=== PATIENT | male | born 1970 | race Caucasian/White ===

== ENCOUNTER → 2019-03-06 | Outpatient (CLI) | payer MEDICAID, SELFPAY ==
[2019-03-06 11:02] LABS: Bacteria 0 SEEN /hpf (None Seen); Mucous, Urine 0 SEEN /hpf (<or=2+); Red Blood Cells-Urine 0 SEEN /hpf (0-5); White Blood Cells 0 SEEN /hpf (0-5)
[2019-03-06 12:15] LABS: Absolute Lymphocyte Count 2.24 X10^3/ul (0.83-4.51); Absolute Neutrophil Count 6.7 X10^3/uL (2.0-7.7); Basophil# 0.03 X10^3/uL; Basophil% 0.3 % (0-1); Eosinophil# 0.33 X10^3/uL; Eosinophils% 3.3 % (0-5); Hematocrit 45.7 % (40-54); Hemoglobin 15.5 g/dl (13.0-16.5); Lymphocyte # 2.24 X10^3/ul (4.0); Lymphocyte % 22.4 % (19-41); Mean Corp Hgb Conc 33.9 g/gl (32-36); Mean Corpuscular Hgb 30.9 pg (27.0-32.0); Mean Platelet Vol. 10.9 fl (6.2-12.0); Monocyte# 0.66 X10^3/uL; Monocyte% 6.6 % (0-10); Platelet Count 199 K/mm3 (150-450); RBC Distribution Width CV 12.9 % (11.6-14.6); RBC Distribution Width SD 42.5 fl (35.1-43.9); Red Blood Count 5.02 M/mm3 (4.6-6.2)
[2019-03-06 12:21] LABS: POSITIVE COUNT NO; POSITIVE DIFFERENTIAL NO; POSITIVE MORPHOLOGY NO
[2019-03-06 12:45] LABS: ALB/GLOB Ratio 1.1 RATIO (0.9-2.4); AST(SGOT) 46 U/L (15-37); Alanine Aminotransfer ALT/SGPT 87 U/L (16-61); Alkaline Phosphatase 73 U/L (45-117); Anion Gap 6 (5-15); BUN 11 mg/dL (7-18); BUN/Creat Ratio 13.4 RATIO (10-20); Calcium,Total 9.1 mg/dL (8.5-10.1); Chloride 104 mmol/L (98-107); Cholesterol 234 mg/dL (200); Creatinine, Serum 0.82 mg/dL (0.70-1.30); EST Glomerular Filtration Rate 107 mL/min (>60); Est Glom Filt Rate - Afr Amer 130 mL/min (>60); Globulin 3.6 g/dL (2.2-4.2); Glucose 94 mg/dL (74-106); High Density Lipoprotein 39 mg/dL; Magnesium 2.1 mg/dL (1.6-2.6); Potassium 4.6 mmol/L (3.5-5.1); Protein, Total 7.6 g/dL (6.4-8.2); Sodium Level 135 mmol/L (136-145); T4 Free Direct 0.87 ng/dL (0.76-1.46); Thyroid Stim Hormone (TSH) 1.96 uIU/mL (0.358-3.74); Triglycerides 179 mg/dL; Very Low Density Lipoprotein 36 mg/dL (5-40)
[2019-03-06 14:11] LABS: Color, Urine Yellow (Yellow); Glucose, Dipstick Normal (Normal); Ketone-Dipstick Negative (Negative); Leukocyte Esterase-Dipstick Negative /ul (Negative); Nitrite-Dipstick Negative (Negative); Occult Blood-Urine Negative /ul (Negative); Protein-Dipstick Negative (Negative); Specific Gravity, Urine 1.015 (1.002-1.030); Urine Bilirubin Dipstick Negative (Negative); Urine Clarity Sl. Cloudy (Clear); Urine Urobilinogen Normal (Normal)
[2019-03-06 14:19] LABS: Squamous Epithelial Cells - UA 0-5 SEEN /hpf (0-5)
[2019-03-10 16:09] LABS: HEPATITIS B SURFACE AG Negative (Negative); Hep B Surface Antibodies Non Reactive (.); Hep C Antibodies <0.1 s/co ratio (0.0-0.9)
== END | disposition home or self-care (01) ==
PROVIDERS: Family Provider Family Medicine; PCP Family Medicine; Referring Provider Family Medicine; Visit Provider Family Medicine
DX: I10 Essential (primary) hypertension (principal); E01.0 Iodine-deficiency related diffuse (endemic) goiter; E78.5 Hyperlipidemia, unspecified
CPT/HCPCS: 36415; 80053; 80061; 81001; 83735; 84439; 84443; 85025; 86706; 86803; 87340

== ENCOUNTER → 2019-03-12 | Outpatient (CLI) | payer MEDICAID, SELFPAY ==
--- NOTE | 2019-03-12 09:32 | US_ITS ---
STUDY: THYROID ULTRASOUND REASON FOR EXAM: Male, 48 years old. Thyromegaly. TECHNIQUE: Ultrasound evaluation of the thyroid was performed with real-time and static oconnor-scale imaging. COMPARISON: None. FINDINGS: RIGHT LOBE: The right lobe of the thyroid gland is slightly enlarged and measures 5.1 cm x 1.7 cm x 1.2 cm. There is a homogeneous echotexture. There are no demonstrated solid, cystic or complex lesions. LEFT LOBE: The left lobe of the thyroid gland measures 4.5 cm x 1.8 cm x 1.7 cm. There is a homogeneous echotexture. There are no demonstrated solid, cystic or complex lesions. ISTHMUS: The isthmus measures 4.0 mm. The regional lymph nodes are normal. US/Thyroid IMPRESSION: Mild enlargement of the right lobe of the thyroid. Electronically Signed: Venkatesh Hernandez, at 10:41 EDT , Service support ,
== END | disposition home or self-care (01) ==
PROVIDERS: Family Provider Family Medicine; PCP Family Medicine; Referring Provider Family Medicine; Visit Provider Family Medicine
DX: E01.0 Iodine-deficiency related diffuse (endemic) goiter (principal)
CPT/HCPCS: 76536

== ENCOUNTER → 2019-06-03 15:57 | Outpatient (CLI) | payer MEDICAID, SELFPAY ==
[2019-04-01 14:27] VITALS: BMI 38.3
[2019-06-03 17:29] LABS: Absolute Lymphocyte Count 2.33 X10^3/uL (0.83-4.51); Absolute Neutrophil Count 4.9 X10^3/uL (2.0-7.7); Basophil# 0.03 X10^3/uL; Basophil% 0.4 % (0-1); Eosinophil# 0.27 X10^3/uL; Eosinophils% 3.2 % (0-5); Hematocrit 46.3 % (40-54); Hemoglobin 15.1 g/dL (13.0-16.5); Lymphocyte # 2.33 X10^3/ul (4.0); Lymphocyte % 27.6 % (19-41); Mean Corp Hgb Conc 32.6 g/dL (32-36); Mean Corpuscular Hgb 30.2 pg (27.0-32.0); Mean Corpuscular Volume 92.6 fL (80-94); Mean Platelet Vol. 10.9 fl (6.2-12.0); Monocyte# 0.89 X10^3/uL; Monocyte% 10.5 % (0-10); NRBC Flagged by Analyzer 0 % (0-5); Neutrophil % 57.9 % (47-70); Platelet Count 208 K/mm3 (150-450); RBC Distribution Width SD 41.1 fl (35.1-43.9); White Blood Count 8.5 K/mm3 (4.4-11.0)
[2019-06-03 17:55] LABS: ALB/GLOB Ratio 1.1 RATIO (0.9-2.4); AST(SGOT) 51 U/L (15-37); Alanine Aminotransfer ALT/SGPT 79 U/L (16-61); Albumin, Serum 4.4 g/dL (3.2-5.0); Alkaline Phosphatase 67 U/L (45-117); Anion Gap 8 (5-15); BUN 11 mg/dL (7-18); BUN/Creat Ratio 11.6 RATIO (10-20); Calcium,Total 9.4 mg/dL (8.5-10.1); Chloride 102 mmol/L (98-107); Cholesterol 176 mg/dL (200); Creatinine, Serum 0.95 mg/dL (0.70-1.30); EST Glomerular Filtration Rate 90 mL/min (>60); Est Glom Filt Rate - Afr Amer 109 mL/min (>60); Globulin 4.1 g/dL (2.2-4.2); Glucose 77 mg/dL (74-106); High Density Lipoprotein 43 mg/dL; Potassium 4.6 mmol/L (3.5-5.1); Protein, Total 8.5 g/dL (6.4-8.2); Sodium Level 139 mmol/L (136-145); Triglycerides 130 mg/dL; Very Low Density Lipoprotein 26 mg/dL (5-40)
== END ==
PROVIDERS: Family Provider Family Medicine; PCP Family Medicine; Referring Provider Family Medicine; Visit Provider Family Medicine
DX: E78.5 Hyperlipidemia, unspecified (principal); R94.5 Abnormal results of liver function studies; I10 Essential (primary) hypertension
CPT/HCPCS: 36415; 80053; 80061; 85025

== ENCOUNTER → 2020-06-01 16:01 | Outpatient (CLI) | payer OTHER, SELFPAY ==
[2019-04-01 14:27] VITALS: BMI 38.3
[2020-06-01 19:03] LABS: Basophil# 0.04 X10^3/uL; Basophil% 0.5 % (0-1); Eosinophils% 2.4 % (0-5); Hemoglobin 15.6 g/dL (13.0-16.5); Lymphocyte % 27.6 % (19-41); Mean Corp Hgb Conc 32.5 g/dL (32-36); Mean Corpuscular Hgb 30.5 pg (27.0-32.0); Mean Corpuscular Volume 93.8 fL (80-94); Monocyte# 0.76 X10^3/uL; Monocyte% 9.1 % (0-10); NRBC Flagged by Analyzer 0 % (0-5); Neutrophil # 4.99 X10^3/uL (2.7-7.7); Platelet Count 224 K/mm3 (150-450); RBC Distribution Width CV 12.1 % (11.6-14.6); RBC Distribution Width SD 42.1 fl (35.1-43.9); Red Blood Count 5.12 M/mm3 (4.6-6.2); White Blood Count 8.3 K/mm3 (4.4-11.0)
[2020-06-01 19:11] LABS: Vitamin D,25 Hydroxy 19.9 ng/mL
[2020-06-01 19:46] LABS: AST(SGOT) 60 U/L (15-37); Alanine Aminotransfer ALT/SGPT 101 U/L (16-61); Albumin, Serum 4.2 g/dL (3.2-5.0); Alkaline Phosphatase 66 U/L (45-117); Anion Gap 8 (5-15); BUN 9 mg/dL (7-18); BUN/Creat Ratio 9.5 RATIO (10-20); Calcium,Total 9.2 mg/dL (8.5-10.1); Chloride 101 mmol/L (98-107); Cholesterol 250 mg/dL (200); Creatinine, Serum 0.94 mg/dL (0.70-1.30); EST Glomerular Filtration Rate 90 mL/min (>60); Est Glom Filt Rate - Afr Amer 109 mL/min (>60); Glucose 90 mg/dL (74-106); High Density Lipoprotein 46 mg/dL; Potassium 3.9 mmol/L (3.5-5.1); Protein, Total 8.2 g/dL (6.4-8.2); Sodium Level 136 mmol/L (136-145); Thyroid Stim Hormone (TSH) 2.48 uIU/mL (0.358-3.74); Triglycerides 114 mg/dL; Very Low Density Lipoprotein 23 mg/dL (5-40)
== END ==
PROVIDERS: PCP Family Medicine; Referring Provider Family Medicine; Visit Provider Family Medicine
DX: I10 Essential (primary) hypertension (principal); E78.5 Hyperlipidemia, unspecified; E55.9 Vitamin D deficiency, unspecified
CPT/HCPCS: 36415; 80053; 80061; 82306; 84443; 85025

== ENCOUNTER → 2020-08-31 16:14 | Outpatient (CLI) | payer OTHER, SELFPAY ==
[2019-04-01 14:27] VITALS: BMI 38.3
[2020-08-31 18:08] LABS: Absolute Lymphocyte Count 2.54 X10^3/uL (0.83-4.51); Absolute Neutrophil Count 6.4 X10^3/uL (2.0-7.7); Basophil# 0.05 X10^3/uL; Basophil% 0.5 % (0-1); Eosinophil# 0.25 X10^3/uL; Eosinophils% 2.5 % (0-5); Hematocrit 45.5 % (40-54); Lymphocyte # 2.54 X10^3/ul (4.0); Lymphocyte % 25.5 % (19-41); Mean Corpuscular Hgb 30.7 pg (27.0-32.0); Mean Platelet Vol. 10.7 fl (6.2-12.0); Monocyte# 0.68 X10^3/uL; Monocyte% 6.8 % (0-10); NRBC Flagged by Analyzer 0 % (0-5); Neutrophil # 6.35 X10^3/uL (2.7-7.7); Neutrophil % 63.6 % (47-70); Platelet Count 215 K/mm3 (150-450); RBC Distribution Width CV 12.3 % (11.6-14.6); RBC Distribution Width SD 42.4 fl (35.1-43.9); Red Blood Count 4.89 M/mm3 (4.6-6.2)
[2020-08-31 18:19] LABS: ALB/GLOB Ratio 1.2 RATIO (0.9-2.4); AST(SGOT) 31 U/L (15-37); Alanine Aminotransfer ALT/SGPT 50 U/L (16-61); Albumin, Serum 4.5 g/dL (3.2-5.0); Alkaline Phosphatase 57 U/L (45-117); Anion Gap 7 (5-15); BUN 14 mg/dL (7-18); BUN/Creat Ratio 14.4 RATIO (10-20); Calcium,Total 9.4 mg/dL (8.5-10.1); Chloride 102 mmol/L (98-107); Cholesterol 137 mg/dL (200); Creatinine, Serum 0.97 mg/dL (0.70-1.30); EST Glomerular Filtration Rate 88 mL/min (>60); Est Glom Filt Rate - Afr Amer 106 mL/min (>60); Globulin 3.6 g/dL (2.2-4.2); Glucose 82 mg/dL (74-106); High Density Lipoprotein 56 mg/dL; Potassium 4.3 mmol/L (3.5-5.1); Protein, Total 8.1 g/dL (6.4-8.2); Sodium Level 137 mmol/L (136-145); Triglycerides 132 mg/dL; Very Low Density Lipoprotein 26 mg/dL (5-40)
[2020-08-31 18:48] LABS: Vitamin D,25 Hydroxy 34.9 ng/mL
== END ==
LOC: MFPLAB 16:15
PROVIDERS: PCP Family Medicine; Referring Provider Family Medicine; Visit Provider Family Medicine
DX: E78.5 Hyperlipidemia, unspecified (principal); R79.89 Other specified abnormal findings of blood chemistry; E55.9 Vitamin D deficiency, unspecified; G47.33 Obstructive sleep apnea (adult) (pediatric)
CPT/HCPCS: 36415; 80053; 80061; 82306; 85025

== ENCOUNTER → 2021-01-30 16:00 | Outpatient (CLI) | payer OTHER, SELFPAY ==
[2019-04-01 14:27] VITALS: BMI 38.3
[2021-01-30 18:21] LABS: ALB/GLOB Ratio 1.2 RATIO (0.9-2.4); AST(SGOT) 33 U/L (15-37); Alanine Aminotransfer ALT/SGPT 59 U/L (16-61); Albumin, Serum 4.3 g/dL (3.2-5.0); Alkaline Phosphatase 48 U/L (45-117); Anion Gap 9 (5-15); BUN 13 mg/dL (7-18); BUN/Creat Ratio 13.5 RATIO (10-20); Calcium,Total 9.4 mg/dL (8.5-10.1); Chloride 101 mmol/L (98-107); Cholesterol 147 mg/dL (200); Creatinine, Serum 0.96 mg/dL (0.70-1.30); EST Glomerular Filtration Rate 88 mL/min (>60); Est Glom Filt Rate - Afr Amer 106 mL/min (>60); Globulin 3.7 g/dL (2.2-4.2); Glucose 87 mg/dL (74-106); High Density Lipoprotein 53 mg/dL; Potassium 4.1 mmol/L (3.5-5.1); Sodium Level 137 mmol/L (136-145); Triglycerides 121 mg/dL; Very Low Density Lipoprotein 24 mg/dL (5-40)
[2021-01-30 18:31] LABS: Vitamin D,25 Hydroxy 32.2 ng/mL
== END ==
LOC: MFPLAB 16:01
PROVIDERS: PCP Family Medicine; Referring Provider Family Medicine; Visit Provider Family Medicine
DX: E78.5 Hyperlipidemia, unspecified (principal); E55.9 Vitamin D deficiency, unspecified
CPT/HCPCS: 36415; 80053; 80061; 82306

== ENCOUNTER → 2021-07-05 | Outpatient (CLI) | payer OTHER, SELFPAY | END | disposition home or self-care (01) | LOC: LABSPEC 16:12 | PROVIDERS: PCP Family Medicine; Referring Provider Family Medicine; Visit Provider Family Medicine | DX: U07.1 COVID-19 (principal) | CPT/HCPCS: 87635; U0005; U0003 ==

== ENCOUNTER → 2021-09-11 16:02 | Outpatient (CLI) | payer OTHER, SELFPAY ==
[2021-09-11 17:55] LABS: AST(SGOT) 73 U/L (15-37); Alanine Aminotransfer ALT/SGPT 99 U/L (16-61); Alkaline Phosphatase 46 U/L (45-117); Anion Gap 11 (5-15); BUN 9 mg/dL (7-18); BUN/Creat Ratio 10.9 RATIO (10-20); Calcium,Total 9.4 mg/dL (8.5-10.1); Chloride 100 mmol/L (98-107); Cholesterol 216 mg/dL (200); Creatinine, Serum 0.83 mg/dL (0.70-1.30); EST Glomerular Filtration Rate 105 mL/min (>60); Est Glom Filt Rate - Afr Amer 127 mL/min (>60); Glucose 90 mg/dL (74-106); High Density Lipoprotein 44 mg/dL; Potassium 4.3 mmol/L (3.5-5.1); Sodium Level 138 mmol/L (136-145); Thyroid Stim Hormone (TSH) 3.61 uIU/mL (0.358-3.74); Triglycerides 248 mg/dL; Very Low Density Lipoprotein 50 mg/dL (5-40)
[2021-09-11 18:13] LABS: Absolute Lymphocyte Count 2.26 X10^3/uL (0.83-4.51); Basophil# 0.05 X10^3/uL; Basophil% 0.5 % (0-1); Eosinophil# 0.24 X10^3/uL; Eosinophils% 2.3 % (0-5); Hematocrit 44.6 % (40-54); Hemoglobin 15.1 g/dL (13.0-16.5); Lymphocyte # 2.26 X10^3/ul (0.83-4.51); Mean Corp Hgb Conc 33.9 g/dL (32-36); Mean Corpuscular Hgb 31.7 pg (27.0-32.0); Mean Corpuscular Volume 93.7 fL (80-94); Mean Platelet Vol. 10.8 fl (6.2-12.0); Monocyte# 0.63 X10^3/uL; Monocyte% 6.1 % (0-10); NRBC Flagged by Analyzer 0 % (0-5); Neutrophil # 7.03 X10^3/uL (2.7-7.7); Neutrophil % 68.5 % (47-70); Platelet Count 220 K/mm3 (150-450); RBC Distribution Width CV 12.4 % (11.6-14.6); RBC Distribution Width SD 43.3 fl (35.1-43.9); Red Blood Count 4.76 M/mm3 (4.6-6.2); White Blood Count 10.3 K/mm3 (4.4-11.0)
== END ==
LOC: MFPLAB 16:02
PROVIDERS: PCP Family Medicine; Visit Provider Family Medicine
DX: I25.10 Atherosclerotic heart disease of native coronary artery without angina pectoris (principal); E78.5 Hyperlipidemia, unspecified
CPT/HCPCS: 36415; 80053; 80061; 84443; 85025

== ENCOUNTER 2021-09-26 16:11 | Outpatient (CLI) | payer OTHER, SELFPAY ==
[2021-09-26 18:35] LABS: Anion Gap 8 (5-15); BUN 19 mg/dL (7-18); Calcium,Total 9.4 mg/dL (8.5-10.1); Chloride 97 mmol/L (98-107); Creatinine, Serum 0.95 mg/dL (0.70-1.30); EST Glomerular Filtration Rate 90 mL/min (>60); Est Glom Filt Rate - Afr Amer 108 mL/min (>60); Glucose 104 mg/dL (74-106); Potassium 4.8 mmol/L (3.5-5.1); Sodium Level 134 mmol/L (136-145)
== END 2021-09-26 23:59 | disposition short-term general hospital (02) ==
LOC: MFPLAB 16:14
PROVIDERS: PCP Family Medicine; Referring Provider Family Medicine; Visit Provider Family Medicine
DX: I10 Essential (primary) hypertension (principal)
CPT/HCPCS: 36415; 80048

== ENCOUNTER 2021-10-09 08:43 | Outpatient (CLI) | payer OTHER, SELFPAY ==
[2021-10-09 10:43] LABS: Anion Gap 10 (5-15); BUN 15 mg/dL (7-18); BUN/Creat Ratio 15.1 RATIO (10-20); Calcium,Total 9.3 mg/dL (8.5-10.1); Chloride 102 mmol/L (98-107); Creatinine, Serum 0.99 mg/dL (0.70-1.30); EST Glomerular Filtration Rate 85 mL/min (>60); Est Glom Filt Rate - Afr Amer 103 mL/min (>60); Glucose 149 mg/dL (74-106); Potassium 4.3 mmol/L (3.5-5.1); Sodium Level 135 mmol/L (136-145)
== END 2021-10-09 23:59 | disposition short-term general hospital (02) ==
LOC: MFPLAB 08:45
PROVIDERS: PCP Family Medicine; Referring Provider Family Medicine; Visit Provider Family Medicine
DX: I10 Essential (primary) hypertension (principal)
CPT/HCPCS: 36415; 80048

== ENCOUNTER 2021-10-20 06:41 | Outpatient (CLI) | payer OTHER, SELFPAY ==
[2021-10-20 06:41] LABS: Hemoglobin 15.5 g/dL (13.0-16.5); Mean Corp Hgb Conc 34.4 g/dL (32-36); Mean Corpuscular Hgb 31.3 pg (27.0-32.0); Mean Corpuscular Volume 90.9 fL (80-94); Mean Platelet Vol. 10.1 fl (6.2-12.0); Platelet Count 237 K/mm3 (150-450); RBC Distribution Width CV 11.8 % (11.6-14.6); RBC Distribution Width SD 39.2 fl (35.1-43.9); Red Blood Count 4.95 M/mm3 (4.6-6.2); White Blood Count 7.3 K/mm3 (4.4-11.0)
== END 2021-10-20 23:59 | disposition home or self-care (01) ==
LOC: SDC 12-11 06:41
PROVIDERS: Anesthesiology; PCP Family Medicine; Visit Provider Surgery
DX: Z01.818 Encounter for other preprocedural examination (principal); Z53.9 Procedure and treatment not carried out, unspecified reason
CPT/HCPCS: 85027

== ENCOUNTER 2021-10-23 09:31 | Day surgery (SDC) | payer OTHER, SELFPAY ==
--- NOTE | 2021-10-20 05:57 | EKG12_ITS ---
Test Reason : PREOP Blood Pressure : / mmHG Vent. Rate : 065 BPM Atrial Rate : 065 BPM P-R Int : 130 ms QRS Dur : 098 ms QT Int : 408 ms P-R-T Axes : 002 -20 072 degrees QTc Int : 424 ms Normal sinus rhythm Nonspecific T wave abnormality Abnormal ECG Confirmed by MIRTA BERTRAND, LINDA ([id number]), associate entertainment editor ANGEL DE LA TORRE ([id number]) on 10/26/2021 7:16:14 AM Referred By: Rio Boyce Confirmed By:LINDA KIRBY MD
--- NOTE | 2021-10-20 06:08 | HP.PCM_ITS ---
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 Is patient in pain?: No Allergies No Known Allergies Allergy (Verified 10/09/21 14:30) Medications rosuvastatin 40 mg tablet 40 mg PO DAILY 03/18/19 [History Confirmed 04/01/19] aspirin 81 mg tablet,delayed release 81 mg PO QDAY #90 tab 04/01/19 [Rx Confirmed 04/01/19] clopidogrel 75 mg tablet 75 mg PO DAILY #90 tab 04/01/19 [Rx Confirmed 04/01/19] lisinopril 20 mg tablet 20 mg PO DAILY #90 tab 04/01/19 [Rx Confirmed 04/01/19] metoprolol succinate 50 mg tablet,extended release 24 hr 50 mg PO DAILY #90 tab 04/01/19 [Rx Confirmed 04/01/19] evolocumab 420 mg/3.5 mL subcutaneous wearable injector mg SUBCUT 10/09/21 [History Confirmed 10/09/21] hydrochlorothiazide 25 mg tablet 25 mg PO DAILY 10/09/21 [History Confirmed 10/09/21] [facility] Medical History (Updated 10/09/21 @ 14:[address] Emir Ovalle MD) Atherosclerosis of coronary artery of [place] heart without angina pectoris Essential (primary) hypertension Hyperlipidemia Nicotine dependence Non-ST elevation (NSTEMI) myocardial infarction (11/2014) Obesity ELDA (obstructive sleep apnea) Surgical History History of coronary artery stent placement (12/10/14) History of left heart catheterization (04/06/15) Family History Mother Heart disease Diabetes Social History Smokeless tobacco user: chewing tobacco HPI HPI HPI: LIANG HALL, is a 50 M who presents to the office today for surgical consultation regarding an umbilical hernia. The patient is referred by Dr Rio Boyce and a written compromise surgical consult recommendations will return to him. It is of note that the patient's body weight is 255 pounds with a BMI of 39.9. He has had his umbilical hernia for at least 2 years. It occurred when he was doing some lifting. It is now becoming generally tender around the area. 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 The heaviest item would be 25 pounds. At age 44 he had 2 myocardial infarction by 3 weeks. He has [address] He has been on clopidogrel therapy ever since. He has never smoked cigarettes but he does routinely chew tobacco and he is not interested in ceasing. His family history is notable that parents had heart disease. He does not know of a family history of colon polyps or colon cancer. He states that he had a cardiac stress test approximately a year ago and it did not show signs of ischemia. ROS General General: Yes weight change; No appetite, fatigue, colon cancer, breast cancer or weakness HEENT HEENT: No difficulty swallowing, eye injury, eye surgery, swollen glands or hoarseness Endo Endocrine: No thyroid disease, diabetes mellitus, thyroid cancer, Hair loss, heat intolerance or cold intolerance Skin Skin: No rash or changing moles Breast Breast: No left breast lump, right breast lump, nipple discharge, breast pain, abnormal mammogram, abnormal US or breast enlargement Musc Musculoskeletal: No back problems, arthritis, rheumatoid arthritis, gout or joint pain Cardio Cardiovascular: Yes heart disease, high blood pressure, heart attack and heart stent; No murmur, pacemaker, atrial fibrillation, palpitations, shortness of breat with exertion or chest pain Psych Psychiatric: No depression, anxiety or hearing voices Resp Respiratory: Yes shortness of breath, Yes sleep apnea, Yes cough, No COPD, No asthma, No emphysema and No wheezing Gastro Gastrointestinal: No abdominal pain, No nausea or vomiting, No diarrhea, No constipation, No blood in stool, No acid reflux, Yes hemorrhoids, No ulcers, No gallbladder problem and No black,tarry stools Stanton Hematologic: Yes blood thinners, No blood disorders, No bleeding, No anemia and No blood clots Neuro Neurologic: No system reviewed and no additional complaints, except as documented, No as per HPI, No abnormal gait, No abnormal hearing, No abnormal movements, No abnormal speech, No behavioral changes, No burning sensations, No confusion, No convulsions, No disequilibrium, No dizziness, No localized weakness, No frequent falls, No headache(s), No lack of coordination, No loss of vision, No memory loss, No numbness, No other visual disturbances, No radicular pain, No restless legs, No sensory deficit, No syncope, No tingling, No tremor(s), No weakness and No other Exam Const General: cooperative, healthy appearing, comfortable and no acute distress Nutritional Appearance: obese Orientation: alert, awake and oriented x3 HENMT Head: normal to inspection Eyes General: appearance normal, both eyes and all related structures Chest Other: Increased AP diameter Resp Effort & Inspection: normal respiratory effort Auscultation: clear to auscultation bilaterally Cardio Rate: regular rate Rhythm: regular rhythm GI Palpation: soft and no hepatosplenomegaly Other: Violaceous discoloration slightly to the umbilicus with nonreducible umbilical hernia. Slightly tender. No drainage. Skin is intact. Musc Cervical Spine: normal cervical lordosis Skin General: no rashes or lesions noted Neuro General: patient alert, patient awake and patient oriented x3 Extrem General: no calf tenderness Psych Appearance: grossly normal Assessment and Plan Assessment and Plan (1) Umbilical hernia without obstruction or gangrene: Status: Acute Plan - Dr. Emir Ovalle MD: The patient has never had a screening colonoscopy. I did discuss a screening colonoscopy with him today Pap with possible biopsy or polypectomy as indicated. I do believe that this would be of value to him. I did discuss with him concerns over his ceasing his tobacco use. He states that he has been chewing tobacco long time its not likely disease. I discussed with him the benefits risk complication alternatives of an umbilical herniorrhaphy. We discussed the need for time off of work and from heavy lifting straining. I anticipate a primary repair at the umbilicus with hopefully a retrorectus placement of a Ventralex mesh. He has had an opportunity to ask and have questions answered we will also schedule this for him. Finally I did discuss concepts regarding COVID-19. He has had an opportunity ask have questions answered regarding the vaccine. Copy: Dr Rio Ovalle M.D., F.A.C.S. I have re-examined the patient. There are no clinical changes since date of exam.
[2021-10-20 06:26] VITALS: BP 140/94; PULSE 69; RESP 16; TEMP 36.7; O2SAT 95; BMI 37.7
[2021-10-20] MEDS: Lactated Ringers 1,000 ML 15 ML IV (06:33)
--- NOTE | 2021-10-20 07:19 | SUR.PREOP ---
pt rescheduled for saturdayoctober 23 due to having chewing tobacco this morning.
[2021-10-23] VITALS (7 sets, daily range): BP systolic 102–140; BP diastolic 57–94; PULSE 55–89; RESP 16; TEMP 36.3–36.6; O2SAT 96–100; BMI 37.7
[2021-10-23] MEDS: Lactated Ringers 1,000 ML 15 ML IV (10:23)
--- NOTE | 2021-10-23 10:30 | COLBX_PTH ---
PATIENT: LIANG HALL LOC: EN U#:[id number] AGE/SX: 50/M ROOM: RE10/23/[address]: Dr. Emir Ovalle MD : 1970 BED: DIS: 10/23/2021 SPEC #: [id number] RECD: 10/23/21 14:12 STATUS: CHARITY BLACK #: [id number] AMOS: 10/23/21 10:[address]: Emir Ovalle DEPT: SURGICAL PATHOLOGY RECD BY: Anahi Andre ENTERED: 10/24/21 09:44 SP TYPE: COLON BX OTHR DR: Dr. Rio Boyce MD Tissues: Ascending colon Procedures: Surgery Specimen Level IV HEADER OPERATION: Colonoscopy (MAC) PRE-OP DIAGNOSIS: Umbilical hernia without obstruction or gangrene TISSUE SUBMITTED: Distal ascending polyps x3 MICROSCOPIC DIAGNOSIS Distal ascending colon polyps, biopsy: Fragments of tubular adenoma. AM:kelsey 10/25/2021 MICROSCOPIC DESCRIPTION Slides are reviewed. GROSS DESCRIPTION Received in fixative is one container labeled with the patient's name and designated distal ascending colon. The specimen consists of multiple irregular fragments of light haas soft tissue that in aggregate measure 2.5 x 0.6 x 0.1 cm. The specimen is totally submitted in one cassette. / AM:kelsey 10/24/2021 TC:5 CPT: 17814
--- NOTE | 2021-10-23 11:19 | PCM.HP.BLA ---
History and Physical Date of Admission: 10/23/21 No Known Allergies Allergy (Verified 10/09/21 14:30) Medications rosuvastatin 40 mg tablet 40 mg PO DAILY 03/18/19 [History Confirmed 04/01/19] aspirin 81 mg tablet,delayed release 81 mg PO QDAY #90 tab 04/01/19 [Rx Confirmed 04/01/19] clopidogrel 75 mg tablet 75 mg PO DAILY #90 tab 04/01/19 [Rx Confirmed 04/01/19] lisinopril 20 mg tablet 20 mg PO DAILY #90 tab 04/01/19 [Rx Confirmed 04/01/19] metoprolol succinate 50 mg tablet,extended release 24 hr 50 mg PO DAILY #90 tab 04/01/19 [Rx Confirmed 04/01/19] evolocumab 420 mg/3.5 mL subcutaneous wearable injector mg SUBCUT 10/09/21 [History Confirmed 10/09/21] hydrochlorothiazide 25 mg tablet 25 mg PO DAILY 10/09/21 [History Confirmed 10/09/21] [facility] Medical History (Updated 10/09/21 @ 14:[address] Emir Ovalle MD) Atherosclerosis of coronary artery of [place] heart without angina pectoris Essential (primary) hypertension Hyperlipidemia Nicotine dependence Non-ST elevation (NSTEMI) myocardial infarction (11/2014) Obesity ELDA (obstructive sleep apnea) Surgical History History of coronary artery stent placement (12/10/14) History of left heart catheterization (04/06/15) Family History Mother Heart disease Diabetes Social History Smokeless tobacco user: chewing tobacco HPI HPI HPI: LIANG HALL, is a 50 M who presents to the office today for surgical consultation regarding an umbilical hernia. The patient is referred by Dr Rio Boyce and a written compromise surgical consult recommendations will return to him. It is of note that the patient's body weight is 255 pounds with a BMI of 39.9. He has had his umbilical hernia for at least 2 years. It occurred when he was doing some lifting. It is now becoming generally tender around the area. 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 The heaviest item would be 25 pounds. At age 44 he had 2 myocardial infarction by 3 weeks. He has [address] He has been on clopidogrel therapy ever since. He has never smoked cigarettes but he does routinely chew tobacco and he is not interested in ceasing. His family history is notable that parents had heart disease. He does not know of a family history of colon polyps or colon cancer. He states that he had a cardiac stress test approximately a year ago and it did not show signs of ischemia. ROS General General: Yes weight change; No appetite, fatigue, colon cancer, breast cancer or weakness HEENT HEENT: No difficulty swallowing, eye injury, eye surgery, swollen glands or hoarseness Endo Endocrine: No thyroid disease, diabetes mellitus, thyroid cancer, Hair loss, heat intolerance or cold intolerance Skin Skin: No rash or changing moles Breast Breast: No left breast lump, right breast lump, nipple discharge, breast pain, abnormal mammogram, abnormal US or breast enlargement Musc Musculoskeletal: No back problems, arthritis, rheumatoid arthritis, gout or joint pain Cardio Cardiovascular: Yes heart disease, high blood pressure, heart attack and heart stent; No murmur, pacemaker, atrial fibrillation, palpitations, shortness of breat with exertion or chest pain Psych Psychiatric: No depression, anxiety or hearing voices Resp Respiratory: Yes shortness of breath, Yes sleep apnea, Yes cough, No COPD, No asthma, No emphysema and No wheezing Gastro Gastrointestinal: No abdominal pain, No nausea or vomiting, No diarrhea, No constipation, No blood in stool, No acid reflux, Yes hemorrhoids, No ulcers, No gallbladder problem and No black,tarry stools Stanton Hematologic: Yes blood thinners, No blood disorders, No bleeding, No anemia and No blood clots Neuro Neurologic: No system reviewed and no additional complaints, except as documented, No as per HPI, No abnormal gait, No abnormal hearing, No abnormal movements, No abnormal speech, No behavioral changes, No burning sensations, No confusion, No convulsions, No disequilibrium, No dizziness, No localized weakness, No frequent falls, No headache(s), No lack of coordination, No loss of vision, No memory loss, No numbness, No other visual disturbances, No radicular pain, No restless legs, No sensory deficit, No syncope, No tingling, No tremor(s), No weakness and No other Exam Const General: cooperative, healthy appearing, comfortable and no acute distress Nutritional Appearance: obese Orientation: alert, awake and oriented x3 HENMT Head: normal to inspection Eyes General: appearance normal, both eyes and all related structures Chest Other: Increased AP diameter Resp Effort & Inspection: normal respiratory effort Auscultation: clear to auscultation bilaterally Cardio Rate: regular rate Rhythm: regular rhythm GI Palpation: soft and no hepatosplenomegaly Other: Violaceous discoloration slightly to the umbilicus with nonreducible umbilical hernia. Slightly tender. No drainage. Skin is intact. Musc Cervical Spine: normal cervical lordosis Skin General: no rashes or lesions noted Neuro General: patient alert, patient awake and patient oriented x3 Extrem General: no calf tenderness Psych Appearance: grossly normal Assessment and Plan Assessment and Plan (1) Umbilical hernia without obstruction or gangrene: Status: Acute Plan - Dr. Emir Ovalle MD: The patient has never had a screening colonoscopy. I did discuss a screening colonoscopy with him today Pap with possible biopsy or polypectomy as indicated. I do believe that this would be of value to him. I did discuss with him concerns over his ceasing his tobacco use. He states that he has been chewing tobacco long time its not likely disease. I discussed with him the benefits risk complication alternatives of an umbilical herniorrhaphy. We discussed the need for time off of work and from heavy lifting straining. I anticipate a primary repair at the umbilicus with hopefully a retrorectus placement of a Ventralex mesh. He has had an opportunity to ask and have questions answered we will also schedule this for him. Finally I did discuss concepts regarding COVID-19. He has had an opportunity ask have questions answered regarding the vaccine. Copy: Dr Rio Ovalle M.D., F.A.C.S. I have re-examined the patient. There are no clinical changes since date of exam. 10/20/21 0609 <Electronically signed by Emir Ovalle MD> Cosigner Signature (if applicable): CC: Dr. Rio Boyce MD; Dr. Emir Ovalle, I have re-examined the patient. There are no clinical changes since date of exam.
--- NOTE | 2021-10-23 11:58 | OP.COLON_ITS ---
Patient Name: Maverick Gamboa Procedure Date: 10/23/2021 11:14 AM Date of : 1970 Age: 50 Procedure: Colonoscopy Indications: Screening for colorectal malignant neoplasm Providers: Emir Ovalle MD Referring MD: Rio Boyce Medicines: See the Anesthesia note for documentation of the administered medications Patient Profile: Last Colonoscopy: none. The patient's first colonoscopy is today. Complications: No immediate complications. Procedure: Pre-Anesthesia Assessment: - Prior to the procedure, a History and Physical was performed, and patient medications and allergies were reviewed. The patient's tolerance of previous anesthesia was also reviewed. The risks and benefits of the procedure and the sedation options and risks were discussed with the patient. All questions were answered, and informed consent was obtained. Prior Anticoagulants: The patient has taken no previous anticoagulant or antiplatelet agents. ASA Grade Assessment: II - A patient with mild systemic disease. After reviewing the risks and benefits, the patient was deemed in satisfactory condition to undergo the procedure. After I obtained informed consent, the scope was passed under direct vision. Throughout the procedure, the patient's blood pressure, pulse, and oxygen saturations were monitored continuously. The colonoscope was introduced through the anus and advanced to the cecum, identified by appendiceal orifice and ileocecal valve. The colonoscopy was performed without difficulty. The patient tolerated the procedure well. The quality of the bowel preparation was good. Anatomical landmarks were photographed. The ileocecal valve and the appendiceal orifice were photographed. Scope In: 11:28:44 AM Scope Withdrawal Time 0 hours 13 minutes 21 seconds Scope Out: 11:46:54 AM Total Procedure Duration Time 0 hours 18 minutes 10 seconds Findings: Hemorrhoids were found on perianal exam. A 5 mm polyp was found in the distal ascending colon. The polyp was sessile. The polyp was removed with a hot snare. Resection and retrieval were complete. A 9 mm polyp was found in the distal ascending colon. The polyp was sessile. The polyp was removed with a hot snare. Resection and retrieval were complete. A 3 mm polyp was found in the distal ascending colon. The polyp was sessile. The polyp was removed with a cold biopsy forceps. Resection and retrieval were complete. A few diverticula were found in the sigmoid colon. Impression: - Hemorrhoids found on perianal exam. - One 5 mm polyp in the distal ascending colon, removed with a hot snare. Resected and retrieved. - One 9 mm polyp in the distal ascending colon, removed with a hot snare. Resected and retrieved. - One 3 mm polyp in the distal ascending colon, removed with a cold biopsy forceps. Resected and retrieved. - Diverticulosis in the sigmoid colon. Recommendation: - Discharge patient to home. - Resume previous diet. - Continue present medications. - Repeat colonoscopy in 5 years for surveillance based on pathology results. - Telephone my office for pathology results in 1 week. Procedure Code(s): --- Professional --- 70663, Colonoscopy, flexible; with removal of tumor(s), polyp(s), or other lesion(s) by snare technique 11758, 59, Colonoscopy, flexible; with biopsy, single or multiple Diagnosis Code(s): --- Professional --- K64.9, Unspecified hemorrhoids D12.2, Benign neoplasm of ascending colon K57.30, Diverticulosis of large intestine without perforation or abscess without bleeding CPT copyright 2017 [employer]. All rights reserved. The codes documented in this report are preliminary and upon governor assembler hydraulic review may be revised to meet current compliance requirements. Emir Ovalle MD 10/23/2021 11:58:37 AM This report has been signed electronically. Number of Addenda: 0 Note Initiated On: 10/23/2021 11:14 AM
--- NOTE | 2021-10-23 11:59 | OP.CCLET_ITS ---
10/23/2021 Rio Boyce [address] [place] [address] Re : Colonoscopy procedure for [facility] Dear Dr. Boyce This procedure was performed on Saturday, October 23, 2021. My impressions and recommendations are as follows: Impressions : - Hemorrhoids found on perianal exam. - One 5 mm polyp in the distal ascending colon, removed with a hot snare. Resected and retrieved. - One 9 mm polyp in the distal ascending colon, removed with a hot snare. Resected and retrieved. - One 3 mm polyp in the distal ascending colon, removed with a cold biopsy forceps. Resected and retrieved. - Diverticulosis in the sigmoid colon. Recommendations : - Discharge patient to home. - Resume previous diet. - Continue present medications. - Repeat colonoscopy in 5 years for surveillance based on pathology results. - Telephone my office for pathology results in 1 week. My findings are described in the full procedure note, which is enclosed. If I can be of further assistance, please feel free to contact me at Doctor phone number(s): Work: . Sincerely, Emir Ovalle MD 10/23/2021 11:58:37 AM This report has been signed electronically.
== END 2021-10-23 23:59 | disposition home or self-care (01) ==
LOC: EN 09:31 → AC 09:31
PROVIDERS: PCP Family Medicine; Referring Provider Family Medicine; Visit Provider Surgery
PROC: 0DJD8ZZ Inspection of Lower Intestinal Tract, Via Natural or Artificial Opening Endoscopic (ICD-10-PCS; CPT 45378; principal; 2021-10-23 10:25)
DX: Z12.11 Encounter for screening for malignant neoplasm of colon (principal); D12.2 Benign neoplasm of ascending colon; K57.30 Diverticulosis of large intestine without perforation or abscess without bleeding; K64.9 Unspecified hemorrhoids; I10 Essential (primary) hypertension; K42.9 Umbilical hernia without obstruction or gangrene; I25.10 Atherosclerotic heart disease of native coronary artery without angina pectoris; Z68.39 Body mass index [BMI] 39.0-39.9, adult; E78.5 Hyperlipidemia, unspecified; E66.9 Obesity, unspecified; I25.2 Old myocardial infarction; G47.33 Obstructive sleep apnea (adult) (pediatric); Z95.5 Presence of coronary angioplasty implant and graft; Z79.82 Long term (current) use of aspirin; Z79.02 Long term (current) use of antithrombotics/antiplatelets; Z79.899 Other long term (current) drug therapy; F17.220 Nicotine dependence, chewing tobacco, uncomplicated
CPT/HCPCS: 45385; 45380; 88305; 93005; J7120; J2405

== ENCOUNTER → 2022-01-11 | Outpatient (CLI) | payer OTHER, SELFPAY ==
[2022-01-11 17:48] LABS: Absolute Lymphocyte Count 2.33 X10^3/uL (0.83-4.51); Basophil# 0.04 X10^3/uL; Basophil% 0.5 % (0-1); Eosinophils% 4.7 % (0-5); Hematocrit 44.3 % (40-54); Hemoglobin 15.3 g/dL (13.0-16.5); Lymphocyte # 2.33 X10^3/ul (0.83-4.51); Lymphocyte % 27.6 % (19-41); Mean Corp Hgb Conc 34.5 g/dL (32-36); Mean Corpuscular Hgb 31.7 pg (27.0-32.0); Mean Corpuscular Volume 91.7 fL (80-94); Monocyte# 0.67 X10^3/uL; Monocyte% 7.9 % (0-10); NRBC Flagged by Analyzer 0 % (0-5); Neutrophil # 4.96 X10^3/uL (2.7-7.7); Neutrophil % 58.9 % (47-70); Platelet Count 186 K/mm3 (150-450); RBC Distribution Width CV 12.2 % (11.6-14.6); RBC Distribution Width SD 41.1 fl (35.1-43.9); Red Blood Count 4.83 M/mm3 (4.6-6.2); White Blood Count 8.4 K/mm3 (4.4-11.0)
[2022-01-11 18:00] LABS: ALB/GLOB Ratio 1.1 RATIO (0.9-2.4); AST(SGOT) 73 U/L (15-37); Alanine Aminotransfer ALT/SGPT 96 U/L (16-61); Albumin, Serum 4.1 g/dL (3.2-5.0); Alkaline Phosphatase 48 U/L (45-117); Anion Gap 9 (5-15); BUN 10 mg/dL (7-18); BUN/Creat Ratio 11.7 RATIO (10-20); Calcium,Total 8.5 mg/dL (8.5-10.1); Chloride 101 mmol/L (98-107); Cholesterol 190 mg/dL (200); Creatinine, Serum 0.85 mg/dL (0.70-1.30); EST Glomerular Filtration Rate 101 mL/min (>60); Est Glom Filt Rate - Afr Amer 122 mL/min (>60); Globulin 3.8 g/dL (2.2-4.2); Glucose 98 mg/dL (74-106); High Density Lipoprotein 46 mg/dL; Potassium 3.7 mmol/L (3.5-5.1); Protein, Total 7.9 g/dL (6.4-8.2); Sodium Level 135 mmol/L (136-145); Triglycerides 121 mg/dL; Very Low Density Lipoprotein 24 mg/dL (5-40)
== END | disposition home or self-care (01) ==
LOC: MFPLAB 16:18
PROVIDERS: PCP Family Medicine; Visit Provider Family Medicine
DX: I10 Essential (primary) hypertension (principal); E55.9 Vitamin D deficiency, unspecified
CPT/HCPCS: 36415; 80053; 80061; 82306; 85025

== ENCOUNTER 2022-01-26 10:14 | Emergency (ER) | payer OTHER, SELFPAY ==
[2022-01-26 10:14] VITALS: BP 166/114; PULSE 93; RESP 18; TEMP 36.8; O2SAT 94; BMI 40.3
[2022-01-26 10:32] VITALS: BP 147/105; PULSE 83; RESP 24; TEMP 36.8; O2SAT 94
[2022-01-26 10:36] VITALS: O2SAT 95
--- NOTE | 2022-01-26 10:41 | EX.ED.VIS.UR ---
HPI HPI - URI History of Present Illness Chief Complaint: Shortness of Breath Narrative Narrative: 51-year-old male a cough since Saturday. He states at times it is productive. He states he has not had a fever throughout the week. Yesterday he states he became sweaty when he was coughing but did not have a temperature. He denies chest pain but admits to some mild shortness of breath. No body aches or chills. No nausea, vomiting, diarrhea. No sick contacts other than grandchildren. None of them of been sick. He states he was told that he does not have asthma but does occasionally wheeze. Both of his children have asthma. He does admit to seasonal allergies as well. Patient does not smoke. He does use smokeless tobacco. He admits to history of pleurisy. [facility] ED Constitutional Constitutional ED: Reports sweats; Denies chills or fever(s) Eyes Eyes: Denies blurry vision or change in vision ENT ENT ED: Denies rhinorrhea or sore throat Cardiovascular Cardiovascular: Denies chest pain or palpitations Respiratory/Chest Respiratory/Chest: Reports cough and dyspnea; Denies dyspnea on exertion Gastrointestinal Gastrointestinal: Denies abdominal pain, constipation, diarrhea, nausea or vomiting Genitourinary Genitourinary ED: Denies dysuria or hematuria Musculoskeletal Musculoskeletal: Denies arthralgias or myalgias Integumentary Denies rash Neurologic Neurologic: Denies headache(s) or weakness Psychiatric Psychiatric: Denies anxiety or depression [facility] Medical History Alcohol use Atherosclerosis of coronary artery of [place] heart without angina pectoris Essential (primary) hypertension History of stress test Hyperlipidemia Nicotine dependence Non-ST elevation (NSTEMI) myocardial infarction (11/2014) Obesity ELDA (obstructive sleep apnea) Shortness of breath on exertion Wears glasses Home Medications rosuvastatin 40 mg tablet 40 mg PO DAILY 03/18/19 [History Last Taken Unknown] evolocumab 420 mg/3.5 mL subcutaneous wearable injector 420 mg SUBCUT QMONTH 10/09/21 [History Last Taken Unknown] hydrochlorothiazide 25 mg tablet 25 mg PO DAILY 10/09/21 [History Last Taken Unknown] clopidogrel [Plavix] 75 mg PO DAILY 10/19/21 [History Last Taken 10/19/21 03:00] lisinopril [Zestril] 20 mg PO DAILY 10/19/21 [History Last Taken 10/23/21] metoprolol succinate [Toprol XL] 100 mg PO DAILY 10/19/21 [History Last Taken 10/23/21] aspirin 325 mg PO DAILY 01/26/22 [History Last Taken Unknown] prednisone 50 mg PO DAILY #5 tab 01/26/22 [Rx Last Taken Unknown] promethazine-DM 5 ml PO Q6H PRN #118 ml 01/26/22 [Rx Last Taken Unknown] Allergy/AdvReac Type Severity Reaction Status Date / Time No Known Allergies Allergy Verified 01/26/22 10:33 Family History Mother Heart disease Diabetes Surgical History History of cardiac catheterization History of coronary artery stent placement (12/10/14) History of left heart catheterization (04/06/15) Social History Smoking Status: Never smoker Smokeless tobacco user: chewing tobacco EXAM Physical Exam Const Vital Signs: 01/26/22 10:14 01/26/22 10:32 01/26/22 10:36 Temperature 98.3 F 98.3 F Temperature Source Temporal Temporal Pulse Rate 93 83 Respiratory Rate 18 24 H Respiratory Effort Short of Breath Respiratory Depth Deep Respiratory Pattern Tachypnea Blood Pressure 166/114 H 147/105 H Blood Pressure Mean 131 119 Pulse Ox 94 94 Oxygen Delivery Method Room Air Room Air Room Air 01/26/22 10:52 Temperature Temperature Source Pulse Rate 84 Respiratory Rate 24 H Respiratory Effort Respiratory Depth Respiratory Pattern Normal Blood Pressure Blood Pressure Mean Pulse Ox Oxygen Delivery Method Positive well nourished General Appearance ED: NAD; Negative for pallor HEENT normocephalic and atraumatic Eyes PERRL and EOMs intact bilaterally Neck no lymphadenopathy and supple Resp normal respiratory effort Auscultation: wheezes expiratory wheezes and throughout Cardio Rate: regular rate Rhythm: regular rhythm GI non-tender and non-distended Palpation: soft Extremity normal to inspection and full ROM Neuro oriented x3, CN's II-XII intact bilaterally and no sensory deficits noted Sensorium / Orientation: alert Motor Exam: strength 5/5 throughout Psych mental status grossly normal Skin General Skin Exam: Negative for jaundice or pallor MDM MDM MDM Narrative Medical decision making narrative: Patient presented with cough and appears to be wheezing on examination. He states he has no history of asthma but is prescribed an albuterol inhaler. He is not sure why. Patient given breathing treatments and prednisone and feels improved after this. I did obtain a chest x-ray which was negative for acute cardiopulmonary process on my interpretation. I did offer to test the patient for COVID but he declines. He is outside the window for treatment for influenza so we did not test for this today. Patient has not had any fevers, chills, body aches. He only complains of cough. He does have seasonal allergies. I will start him on a prednisone burst and he is given cough suppressants for home. He is given return precautions. Patient here for discharge. Impression: 1. Acute bronchitis with wheezing Lab Data Attestation: I reviewed the patient's lab results. Radiography Diagnostic Testing: Clinical Impression(s) from Imaging Studies Chest X-Ray 01/26/22 10:44 IMPRESSION: Lungs are clear. Electronically Signed: Venkatesh Hernanedz MD at 11:03 EDT , Discharge Plan Triage Chief Complaint: Shortness of Breath ED Provider: Edwin Upton Dx/Rx/DC Orders Instructions: ED Bronchitis with Wheezing (Adult) Prescriptions: New prednisone 50 mg tablet 50 mg PO DAILY Qty: 5 RF: 0 promethazine-DM 6.25-15 mg/5 mL syrup 5 ml PO Q6H PRN (Reason: cough) Qty: 118 RF: 0 No Action rosuvastatin [Crestor] 40 mg tablet 40 mg PO DAILY RF: 0 Repatha Pushtronex 420 mg/3.5 mL wearable injector 420 mg subcut QMONTH RF: 0 hydrochlorothiazide 25 mg tablet 25 mg PO DAILY RF: 0 metoprolol succinate [Toprol XL] 50 mg tablet extended release 24 hr 100 mg PO DAILY RF: 0 lisinopril [Zestril] 20 mg tablet 20 mg PO DAILY RF: 0 clopidogrel [Plavix] 75 mg tablet 75 mg PO DAILY RF: 0 aspirin 325 mg Tablet 325 mg PO DAILY RF: 0 Primary Care Provider: Rio Boyce Referrals: Rio Boyce MD [Primary Care Provider] - Disposition Disposition: Home, Self Care
--- NOTE | 2022-01-26 10:44 | RAD_ITS ---
STUDY: X-RAY CHEST REASON FOR EXAM: Male, 51 years old. 5 day history of chest pain. TECHNIQUE: Single AP portable view of the chest. COMPARISON: None. FINDINGS: EKG electrodes are seen. The lungs are clear and expanded. There is no demonstrated pleural abnormality. Normal size heart. Normal mediastinum and tanya. Normal visualized pulmonary arteries. There is atherosclerotic tortuosity of the aortic arch and descending thoracic aorta. There are diffuse degenerative changes of the visualized thoracic spine. Normal visualized ribs, clavicles, and shoulders. There is no demonstrated abnormality of the visualized soft tissue structures of the upper abdomen. RAD/Chest 1 View (Portable) IMPRESSION: Lungs are clear. Electronically Signed: Venkatesh Hernandez MD at 11:03 EDT ,
[2022-01-26] MEDS: predniSONE 20 MG Tablet 60 MG PO (10:46)
[2022-01-26] MEDS: Ipratropium/Albuterol Sulfate 3 ML AMPUL.NEB INHALATION (10:48)
[2022-01-26] MEDS: Albuterol 2.5 MG/3 ML VIAL.NEB. INHALATION (10:48)
[2022-01-26 10:52] VITALS: PULSE 84; RESP 24
[2022-01-26 12:37] VITALS: BP 149/101; PULSE 82; RESP 18; O2SAT 94
== END 2022-01-26 12:42 | disposition home or self-care (01) ==
PROVIDERS: Emergency Provider Student in an Organized Health Care Education/Training Program; PCP Family Medicine; Visit Provider Student in an Organized Health Care Education/Training Program
DX: J20.9 Acute bronchitis, unspecified (principal); J30.2 Other seasonal allergic rhinitis; I25.10 Atherosclerotic heart disease of native coronary artery without angina pectoris; I10 Essential (primary) hypertension; E78.5 Hyperlipidemia, unspecified; G47.33 Obstructive sleep apnea (adult) (pediatric); E66.9 Obesity, unspecified; F17.220 Nicotine dependence, chewing tobacco, uncomplicated; Z79.82 Long term (current) use of aspirin; Z79.02 Long term (current) use of antithrombotics/antiplatelets; I25.2 Old myocardial infarction; Z95.5 Presence of coronary angioplasty implant and graft
CPT/HCPCS: 71045; 94640; 99283; A4216

== ENCOUNTER 2022-02-21 09:40 | Inpatient (IN) | payer OTHER, SELFPAY ==
[2022-02-21] VITALS (21 sets, daily range): BP systolic 112–220; BP diastolic 75–184; PULSE 90–110; RESP 12–35; TEMP 36.2–36.7; O2SAT 85–98; BMI 39.4; BMI 38.7
--- NOTE | 2022-02-21 10:00 | EKG12_ITS ---
Test Reason : SOB Blood Pressure : / mmHG Vent. Rate : 100 BPM Atrial Rate : 100 BPM P-R Int : 128 ms QRS Dur : 092 ms QT Int : 352 ms P-R-T Axes : 063 -25 051 degrees QTc Int : 454 ms Normal sinus rhythm Inferior infarct , age undetermined Abnormal ECG Confirmed by TERESA BERTRAND, JED ([id number]), advertising editor ANGEL DE LA TORRE ([id number]) on 02/23/2022 1:48:12 PM Referred By: SHAHBAZ Confirmed By:PAM MOORE MD
--- NOTE | 2022-02-21 10:02 | CT_ITS ---
STUDY: CTA CHEST REASON FOR EXAM: Male, 51 years old. Dyspnea. Increasing shortness of breath. RADIATION DOSAGE (If Supplied By Facility): CTDIvol = ( 24.61 ) mGy, DLP = ( 783.46 ) mGycm TECHNIQUE: The examination was performed with the intravenous administration of IV 100mL Isovue-370. Post-processing of the angiographic images was performed, with multiplanar reformation and 3D reconstruction. Individualized dose optimization techniques were used for this CT. COMPARISON: Comparison is made with prior chest radiograph done earlier in the day. FINDINGS: Small benign-appearing bilateral axillary lymph nodes. Normal enhancement of the main pulmonary artery and right and left pulmonary arteries. Normal enhancement of the bilateral peripheral pulmonary arteries. There is no demonstrated pulmonary embolism. Normal thoracic aorta and visualized great vessels. There is no demonstrated aortic dissection. There are calcifications of the coronary arteries. Normal mediastinum. Normal hilar regions. Normal visualized trachea and bronchi. The lungs are well expanded. Normal pulmonary parenchyma. Normal pleura. Normal chest wall structures. There are degenerative changes of thoracic spine. Small hiatal hernia. CT/CTA Chest W/WO Contrast IMPRESSION: Normal CTA chest examination, without a demonstrated pulmonary embolism or arterial dissection. Electronically Signed: Venkatesh Hernandez MD at 11:31 EDT ,
--- NOTE | 2022-02-21 10:03 | ED.VIS.DYS ---
HPI History of Present Illness Chief Complaint: Shortness of Breath Informant: patient Onset/Context/Timing Onset: Weeks (4) Context: gradual Timing: Waxes and wanes Quality: Positive for Dyspnea on exertion and Wheezing Worsened by: Exertion Relieved by: Nothing Associated Symptoms cough, rhinorrhea, ear pain, sore throat, sweats and green sputum; Negative for fever or chills Chest Pain: Positive for None Narrative Narrative: Patient presents with shortness of breath that has been waxing and waning over the last 4 weeks. Patient states he has been treated for bronchitis with antibiotics and steroids in the past. Patient states that he feels better after finishing the antibiotics and steroids and that his breathing gets worse again. Patient denies any fevers or chills. Patient admits to a cough with some green sputum. Patient admits to some rhinorrhea and a sore throat. Patient also admits to sweats but denies any fevers or chills. Patient states his breathing is worse with exertion. Patient states nothing seems to make it any better. [facility] Medical History Alcohol use Atherosclerosis of coronary artery of [place] heart without angina pectoris Essential (primary) hypertension History of stress test Hyperlipidemia Nicotine dependence Non-ST elevation (NSTEMI) myocardial infarction (11/2014) Obesity ELDA (obstructive sleep apnea) Shortness of breath on exertion Wears glasses Home Medications rosuvastatin 40 mg tablet 40 mg PO DAILY 03/18/19 [History Last Taken 02/20/22] evolocumab 420 mg/3.5 mL subcutaneous wearable injector 420 mg SUBCUT QMONTH 10/09/21 [History Last Taken 02/14/22] hydrochlorothiazide 25 mg tablet 25 mg PO DAILY 10/09/21 [History Last Taken 02/21/22] clopidogrel [Plavix] 75 mg PO DAILY 10/19/21 [History Last Taken 02/21/22] lisinopril [Zestril] 20 mg PO DAILY 10/19/21 [History Last Taken 02/21/22] metoprolol succinate [Toprol XL] 100 mg PO DAILY 10/19/21 [History Last Taken 02/21/22] aspirin 325 mg PO DAILY 01/26/22 [History Last Taken 02/21/22] albuterol sulfate 2 puff INHALATION Q4H PRN PRN 02/21/22 [History Last Taken 02/21/22] bempedoic acid-ezetimibe [Nexlizet] 1 tab PO DAILY 02/21/22 [History Last Taken 02/21/22] carvedilol 6.25 mg PO BID 02/21/22 [History Last Taken 02/21/22] Allergy/AdvReac Type Severity Reaction Status Date / Time No Known Allergies Allergy Verified 02/21/22 09:40 Family History Mother Heart disease Diabetes Surgical History History of cardiac catheterization History of coronary artery stent placement (12/10/14) History of left heart catheterization (04/06/15) Social History Smoking Status: Never smoker Smokeless tobacco user: chewing tobacco ROS ROS ED Constitutional Constitutional ED: Denies chills or fever(s) Eyes Eyes: Denies blurry vision or change in vision ENT ENT ED: Reports rhinorrhea and sore throat Cardiovascular Cardiovascular: Denies chest pain or palpitations Respiratory/Chest Respiratory/Chest: Reports cough and dyspnea Gastrointestinal Gastrointestinal: Denies nausea or vomiting Genitourinary Genitourinary ED: Denies dysuria or hematuria Musculoskeletal Musculoskeletal: Reports back pain; Denies neck pain Integumentary Denies abscess or rash Neurologic Neurologic: Reports headache(s); Denies weakness Allergic/Immunologic Allergic/Immunologic ED: Denies mouth swelling or urticaria EXAM Physical Exam Const Vital Signs: 02/21/22 09:41 02/21/22 09:44 02/21/22 09:51 Temperature 97.1 F L 97.1 F L Temperature Source Temporal Temporal Pulse Rate 110 H 110 H Respiratory Rate 30 H 30 H Respiratory Effort Short of Breath Labored Accessory Muscle Use Respiratory Depth Shallow Blood Pressure 220/184 H 220/184 H Blood Pressure Mean 196 196 Pulse Ox 85 91 Oxygen Delivery Method Nasal Cannula Nasal Cannula Nasal Cannula Oxygen Flow Rate (L/min) 3 3 Fraction of Inspired Oxygen (FIO2) 02/21/22 09:55 02/21/22 10:09 02/21/22 11:09 Temperature 97.4 F L Temperature Source Oral Pulse Rate 95 107 H Respiratory Rate 35 H 35 H 21 H Respiratory Effort Respiratory Depth Blood Pressure 145/97 H Blood Pressure Mean 113 Pulse Ox 94 95 Oxygen Delivery Method Nasal Cannula Nasal Cannula Oxygen Flow Rate (L/min) 3 3 Fraction of Inspired Oxygen (FIO2) 30 30 02/21/22 11:12 02/21/22 11:37 02/21/22 11:38 Temperature Temperature Source Pulse Rate 96 94 Respiratory Rate 30 H 30 H Respiratory Effort Respiratory Depth Blood Pressure Blood Pressure Mean Pulse Ox 96 Oxygen Delivery Method Bi-pap Oxygen Flow Rate (L/min) Fraction of Inspired Oxygen (FIO2) 30 30 02/21/22 12:13 02/21/22 13:00 02/21/22 14:00 Temperature 97.4 F L 97.4 F L Temperature Source Oral Oral Pulse Rate 92 103 H 90 Respiratory Rate 23 H 24 H 17 Respiratory Effort Respiratory Depth Blood Pressure 112/83 H 126/77 H 125/75 H Blood Pressure Mean 92 93 91 Pulse Ox 98 96 97 Oxygen Delivery Method Bi-pap Bi-pap Nasal Cannula Oxygen Flow Rate (L/min) 3 3 Fraction of Inspired Oxygen (FIO2) 30 30 Positive well nourished and well developed General Appearance ED: well developed, diaphoretic and other HEENT Reports moist mucous membranes Neck supple and no JVD Resp Effort and Inspection: labored and uses accessory muscles Auscultation: wheezes throughout Cardio regular rate, regular rhythm and no murmurs GI normal to inspection, nondistended, normoactive bowel sounds and non-tender Palpation: soft Extremity normal to inspection General Extremety ED: Negative for edema or tenderness General Extremity: Negative for edema Neuro oriented x3, CN's II-XII intact bilaterally and no sensory deficits noted Sensorium / Orientation: alert Motor Exam: strength 5/5 throughout Psych mental status grossly normal Skin no rashes or lesions noted Trauma: other MDM MDM MDM Narrative Medical decision making narrative: Patient was given a DuoNeb aerosol here. Patient was given a dose of Solu-Medrol here. EKG was obtained. On my interpretation, it showed a normal sinus rhythm with a rate of 100. [place] interval, QRS interval, and QTc intervals were all normal. [place] was normal. There are nonspecific ST-T wave changes. Portable 1 view chest x-ray was obtained. On my interpretation, lung mccormick are clear. There is normal cardiac silhouette. Bony thorax is normal. There is no acute process noted. Radiologist also interpreted the x-ray and agrees. CBC shows a leukocytosis of 15.7. Basic metabolic profile was essentially within normal limits. CTA of the chest was obtained. There is no pulmonary embolism or aortic dissection. Patient was not getting any better after DuoNeb aerosol. Patient was placed on BiPAP. Patient was given repeat albuterol aerosol. Patient felt better after this. Patient was being maintained on BiPAP. Case was discussed with the hospitalist. He will admit the patient to his service to the PCU. Patient understood and was agreeable with the plan. All questions were answered. Lab Data Attestation: I reviewed the patient's lab results. Labs: Laboratory Results - last 24 hr 02/21/22 02/21/22 09:55 09:55 WBC 15.7 H RBC 5.26 Hgb 16.5 Hct 49.1 MCV 93.3 MCH 31.4 MCHC 33.6 RDW Std Deviation 41.0 RDW Coeff of Marta 11.9 Plt Count 248 MPV 10.1 Immature Gran % (Auto) 0.900 Neut % (Auto) 63.6 Lymph % (Auto) 17.0 L [place] % (Auto) 5.5 Eos % (Auto) 12.5 H Baso % (Auto) 0.5 Absolute Neuts (auto) 10.0 H Absolute Lymphs (auto) 2.67 Nucleated RBC % 0 Sodium 136 Potassium 4.4 Chloride 100 Carbon Dioxide 29.0 Anion Gap 7 BUN 20 H Creatinine 0.97 Estim Creat Clear Calc 82.22 Est GFR (MDRD) Af Amer 106 Est GFR (MDRD) Non-Af 87 BUN/Creatinine Ratio 20.7 H Glucose 165 H Calcium 9.3 Troponin I High Sens 6 Radiography Diagnostic Testing: Clinical Impression(s) from Imaging Studies Chest CTA 02/21/22 10:02 IMPRESSION: Normal CTA chest examination, without a demonstrated pulmonary embolism or arterial dissection. Electronically Signed: Venkatesh Hernandez MD at 11:31 EDT , Chest X-Ray 02/21/22 10:45 IMPRESSION: No acute abnormality is seen. Electronically Signed: Venkatesh Hernandez MD at 11:08 EDT , EKG Initial EKG: Attestation: I personally reviewed and interpreted this EKG as follows: Interpretation: Sinus Rhythm (100) and Non-Specific ST Changes Prior EKG tracings: available for review Prior: Unchanged (10/20/2021) Discharge Plan Disposition Disposition: Acute Care Hospital [facility]
[2022-02-21] MEDS: MethylPREDNISolone 125 MG/2 ML Vial 60 MG IV (10:10)
[2022-02-21] MEDS: Ipratropium/Albuterol Sulfate 3 ML AMPUL.NEB INHALATION ×2 (10:10→20:20)
[2022-02-21 10:27] LABS: Absolute Lymphocyte Count 2.67 X10^3/uL (0.83-4.51); Basophil# 0.08 X10^3/uL; Basophil% 0.5 % (0-1); Eosinophil# 1.96 X10^3/uL; Eosinophils% 12.5 % (0-5); Hematocrit 49.1 % (40-54); Hemoglobin 16.5 g/dL (13.0-16.5); Lymphocyte # 2.67 X10^3/ul (0.83-4.51); Mean Corp Hgb Conc 33.6 g/dL (32-36); Mean Corpuscular Hgb 31.4 pg (27.0-32.0); Mean Corpuscular Volume 93.3 fL (80-94); Mean Platelet Vol. 10.1 fl (6.2-12.0); Monocyte# 0.86 X10^3/uL; Monocyte% 5.5 % (0-10); NRBC Flagged by Analyzer 0 % (0-5); Neutrophil # 10.03 X10^3/uL (2.7-7.7); Neutrophil % 63.6 % (47-70); Platelet Count 248 K/mm3 (150-450); RBC Distribution Width CV 11.9 % (11.6-14.6); Red Blood Count 5.26 M/mm3 (4.6-6.2); White Blood Count 15.7 K/mm3 (4.4-11.0)
[2022-02-21 10:44] LABS: Anion Gap 7 (5-15); BUN 20 mg/dL (7-18); BUN/Creat Ratio 20.7 RATIO (10-20); Calcium,Total 9.3 mg/dL (8.5-10.1); Chloride 100 mmol/L (98-107); Creatinine, Serum 0.97 mg/dL (0.70-1.30); EST Glomerular Filtration Rate 87 mL/min (>60); Est Glom Filt Rate - Afr Amer 106 mL/min (>60); Estimated Creatinine Clearance 82.22 ml/min; Glucose 165 mg/dL (74-106); Potassium 4.4 mmol/L (3.5-5.1); Sodium Level 136 mmol/L (136-145); Troponin-I HS 6 pg/mL (3.0-78.0)
--- NOTE | 2022-02-21 10:45 | RAD_ITS ---
STUDY: X-RAY CHEST REASON FOR EXAM: Male, 51 years old. Dyspnea TECHNIQUE: Single AP portable view of the chest. COMPARISON: Comparison is made with prior study of 01/26/2022. FINDINGS: EKG electrodes are seen. The lungs are clear and expanded. There is no demonstrated pleural abnormality. Normal size heart. Normal mediastinum and tanya. Normal visualized pulmonary arteries. There is atherosclerotic tortuosity of the aortic arch and descending thoracic aorta. There are diffuse degenerative changes of the visualized thoracic spine. Normal visualized ribs, clavicles, and shoulders. There is no demonstrated abnormality of the visualized soft tissue structures of the upper abdomen. RAD/Chest 1 View (Portable) IMPRESSION: No acute abnormality is seen. Electronically Signed: Venkatesh Hernandez MD at 11:08 EDT ,
[2022-02-21] MEDS: Albuterol 2.5 MG/3 ML VIAL.NEB. INHALATION (11:36)
--- NOTE | 2022-02-21 14:16 | NURSING ---
DR ECTOR LARES
--- NOTE | 2022-02-21 14:19 | PCM.HP.STD ---
HPI - General General Date of Admission: 02/21/22 Date of Service: 02/21/22 Chief Complaint: Shortness of breath, cough for 4 weeks HPI Narrative LIANG HALL, is a 51 M with history of coronary artery disease status post stent in 2014 and ELDA on CPAP came to ED for shortness of breath, productive cough, dyspnea on exertion for 4 weeks. Patient was seen in ED on 01/26 for productive cough and shortness of breath prednisone and cough medicine. Patient also complains of URI symptoms including sinus congestion, mild headache, sore throat/discomfort but denies chest pain or pressure. He gets diaphoretic but denies fever. When patient came to ED was very short of breath, tachycardic, tachypneic respiratory rate in 30s, high blood pressure 220/184 and hypoxic 85% on nasal cannula 3 L. Subsequently was put on BiPAP 30% FiO2 for about 2 hours and he felt improvement. Chest CTA is negative for PE and does not show acute consolidation or arterial dissection. Twelve-lead EKG individually reviewed and is normal sinus rhythm with old inferior infarct, QTC 454 ms. Rapid flu antigen and COVID-19 negative. Patient has a history of allergy to pollens and dust but unclear if there is diagnosed. He follows Dr. Seo for sleep apnea. He had cardiac cath and PCI in 2014. Follows Dr. Ugarte. [facility] Medical History Alcohol use Atherosclerosis of coronary artery of [place] heart without angina pectoris Essential (primary) hypertension History of stress test Hyperlipidemia Nicotine dependence Non-ST elevation (NSTEMI) myocardial infarction (11/2014) Obesity ELDA (obstructive sleep apnea) Shortness of breath on exertion Wears glasses Home Medications rosuvastatin 40 mg tablet 40 mg PO DAILY 03/18/19 [History Last Taken 02/20/22] evolocumab 420 mg/3.5 mL subcutaneous wearable injector 420 mg SUBCUT QMONTH 10/09/21 [History Last Taken 02/14/22] hydrochlorothiazide 25 mg tablet 25 mg PO DAILY 10/09/21 [History Last Taken 02/21/22] clopidogrel [Plavix] 75 mg PO DAILY 10/19/21 [History Last Taken 02/21/22] lisinopril [Zestril] 20 mg PO DAILY 10/19/21 [History Last Taken 02/21/22] metoprolol succinate [Toprol XL] 100 mg PO DAILY 10/19/21 [History Last Taken 02/21/22] aspirin 325 mg PO DAILY 01/26/22 [History Last Taken 02/21/22] albuterol sulfate 2 puff INHALATION Q4H PRN PRN 02/21/22 [History Last Taken 02/21/22] bempedoic acid-ezetimibe [Nexlizet] 1 tab PO DAILY 02/21/22 [History Last Taken 02/21/22] carvedilol 6.25 mg PO BID 02/21/22 [History Last Taken 02/21/22] Allergy/AdvReac Type Severity Reaction Status Date / Time No Known Allergies Allergy Verified 02/21/22 09:40 Family History Mother Heart disease Diabetes Surgical History History of cardiac catheterization History of coronary artery stent placement (12/10/14) History of left heart catheterization (04/06/15) Social History Smoking Status: Never smoker Smokeless tobacco user: chewing tobacco ROS ROS Narrative Constitutional: Reports fatigue and weakness, shortness of breath on exertion. No fever. Morbid obesity HEENT: Reports systems reviewed and no addt'l complaints, except as documented Respiratory/Chest: Admission HPI Gastrointestinal: Denies coffee ground emesis, hematemesis or vomiting Genitourinary: Denies burning urination or new urinary tract symptoms Musculoskeletal: Reports joint pain and limited range of motion Neurologic: Denies seizure-like activity skin: No ulcer. No rash Endocrinology: Reports systems reviewed and no addt'l complaints, except as documented Hematologic/Lymphatic: Reports systems reviewed and no addt'l complaints, except as documented Rest 14 ROS are negative except as mentioned in HPI Vital Signs Vital Signs Vital Signs: 02/21/22 09:41 02/21/22 09:44 02/21/22 09:51 Temperature 97.1 F L 97.1 F L Temperature Source Temporal Temporal Pulse Rate 110 H 110 H Respiratory Rate 30 H 30 H Respiratory Effort Short of Breath Labored Accessory Muscle Use Respiratory Depth Shallow Blood Pressure 220/184 H 220/184 H Blood Pressure Mean 196 196 Pulse Ox 85 91 Oxygen Delivery Method Nasal Cannula Nasal Cannula Nasal Cannula Oxygen Flow Rate (L/min) 3 3 Fraction of Inspired Oxygen (FIO2) 02/21/22 09:55 02/21/22 10:09 02/21/22 11:09 Temperature 97.4 F L Temperature Source Oral Pulse Rate 95 107 H Respiratory Rate 35 H 35 H 21 H Respiratory Effort Respiratory Depth Blood Pressure 145/97 H Blood Pressure Mean 113 Pulse Ox 94 95 Oxygen Delivery Method Nasal Cannula Nasal Cannula Oxygen Flow Rate (L/min) 3 3 Fraction of Inspired Oxygen (FIO2) 30 30 02/21/22 11:12 02/21/22 11:37 02/21/22 11:38 Temperature Temperature Source Pulse Rate 96 94 Respiratory Rate 30 H 30 H Respiratory Effort Respiratory Depth Blood Pressure Blood Pressure Mean Pulse Ox 96 Oxygen Delivery Method Bi-pap Oxygen Flow Rate (L/min) Fraction of Inspired Oxygen (FIO2) 30 30 02/21/22 12:13 02/21/22 13:00 02/21/22 14:00 Temperature 97.4 F L 97.4 F L Temperature Source Oral Oral Pulse Rate 92 103 H 90 Respiratory Rate 23 H 24 H 17 Respiratory Effort Respiratory Depth Blood Pressure 112/83 H 126/77 H 125/75 H Blood Pressure Mean 92 93 91 Pulse Ox 98 96 97 Oxygen Delivery Method Bi-pap Bi-pap Nasal Cannula Oxygen Flow Rate (L/min) 3 3 Fraction of Inspired Oxygen (FIO2) 30 30 Weight Weight: 244 lb 0.827 oz Body Mass Index (BMI) 39.4 Physical Exam Narrative General: Alert, Oriented x3, Cooperative, morbid obesity BMI 38.8 kg/m? HEENT: Mild tenderness over left submandibular angle. Atraumatic, PERRLA, EOMI, Normocephalic Oral: Oral mucosa dry. Deep oropharyngeal, base of tongue not visualized. Probably had tonsillectomy in childhood. No Gingival or Mucosal Lesions/ Ulcerations Neck: Supple, No JVD, Negative Carotid Bruits Lungs: Air entry diminished in bilateral lung bases. Bilateral wheezing. Cardiovascular: Regular rate, Regular Rhythm, Normal S1, Normal S2, No murmurs Abdomen: Bowel Sounds Present, Soft, Non Tender, Non-Distended : No renal angle tenderness. No suprapubic tenderness. Extremities: No edema, Capillary Refill Less than 3 Seconds Skin: No rashes, No breakdown Musculoskeletal: No Tenderness to Palpation of Joints or Extremities Neurological: Cranial nerves II-XII grossly intact, DTR 2+/4 and Symmetrical, Neuro grossly intact Psych/Mental Status: Normal Affect, Appropriate. Results Lab / Micro Data Result Diagrams: 02/21/22 09:55 02/21/22 09:55 Labs: Laboratory Results - last 24 hr 02/21/22 09:55: WBC 15.7 H, RBC 5.26, Hgb 16.5, Hct 49.1, MCV 93.3, MCH 31.4, MCHC 33.6, RDW Std Deviation 41.0, RDW Coeff of Marta 11.9, Plt Count 248, MPV 10.1, Immature Gran % (Auto) 0.900, Neut % (Auto) 63.6, Lymph % (Auto) 17.0 L, [place] % (Auto) 5.5, Eos % (Auto) 12.5 H, Baso % (Auto) 0.5, Absolute Neuts (auto) 10.0 H, Absolute Lymphs (auto) 2.67, Nucleated RBC % 0 02/21/22 09:55: Sodium 136, Potassium 4.4, Chloride 100, Carbon Dioxide 29.0, Anion Gap 7, BUN 20 H, Creatinine 0.97, Estim Creat Clear Calc 82.22, Est GFR (MDRD) Af Amer 106, Est GFR (MDRD) Non-Af 87, BUN/Creatinine Ratio 20.7 H, Glucose 165 H, Calcium 9.3, Troponin I High Sens 6 Micro: Microbiology 02/21/22 10:08 Nasal Secretion SARS-CoV-2 & FLU Antigen (Rapid) - Final Radiology Impression Chest CTA 02/21/22 10:02 IMPRESSION: Normal CTA chest examination, without a demonstrated pulmonary embolism or arterial dissection. Electronically Signed: Venkatesh Hernandez MD at 11:31 EDT , Chest X-Ray 02/21/22 10:45 IMPRESSION: No acute abnormality is seen. Electronically Signed: Venkatesh Hernandez MD at 11:08 EDT , Assessment & Plan Assessment/Plan (1) Acute respiratory failure with hypoxia: PLAN: 1. Acute hypoxic respiratory failure exact etiology unclear but possible differentials are COPD/asthma exacerbation due to acute bronchitis: Patient is being admitted in PCU. Continue BiPAP for rescue and at night. ABG ordered. Bronchodilator DuoNeb every 4 hourly, IV Solu-Medrol, incentive spirometry, Pep and Zithromax ordered. COVID-19 PCR ordered. If that negative will order respiratory panel. Sputum culture and blood cultures x2 ordered. Patient has leukocytosis but does not have focus of infection or other features of sepsis. Chest x-ray and CT individually reviewed does not show acute abnormality. 2. Coronary artery disease status post stent in 2015. Patient has atherosclerotic coronary artery disease status post PCI in 2015. Patient not showing any features of heart failure including leg swelling, pulmonary or elevated JVD. 2D echo ordered. Last exercise stress echo in March 2015 reported EF 68% with mild segmental hypokinesis. It was negative for ischemia as per EKG and echo criteria. Last cardiac cath in March 2015 reported EF 55% with triple-vessel coronary artery disease without angiographic evidence of disease progression or restenosis of posterior circulation. Continue baby aspirin, Plavix, carvedilol 3. Obstructive sleep apnea on CPAP: Last pulmonary visit in [address] Seo. Patient had diagnostic polysomnogram. He chews tobacco. 4. Hypertension and dyslipidemia: Patient on rosuvastatin continued. On HCTZ and lisinopril. 5. Hyperglycemia: Glucose is 165 mg/dL on BMP. A1c tomorrow a.m. VT prophylaxis: Lovenox 40 MG subcu daily. Discontinue if platelet count drops less than 50,000 or hemoglobin less than 8 g% Living will/advanced directive/end of life care: Patient does not have living will or advanced directive. His next to kin. After discussion of benefits/risks procedures involved with full code, DNR CC arrest and DNR CC, the patient opted for full code. Patient does want artificial life support including intubation, tube feed, ventilator and/chest compression, central venous catheter, vasopressor and DC shock if needed Total time spent in [id number] encounter in discussion of advanced directive 16 minutes. Charges/Coding Visit Charges Inpatient E&M: 14682 Init Hosp L3 Procedures Hospitalists Procedures: 74509 Advncd Care Plan 30 Min
--- NOTE | 2022-02-21 14:35 | NURSING ---
PCU ECTOR REACTIVE AIRWAY DISEASE, DYSPNEA
[2022-02-21 15:36] LABS: Allen Test Positive; Base Excess 4 mmol/L (-2 to +2); Blood Gas Specimen Type ART; O2 Delivery Device Cannula; PO2 85 mmHG (75-100); SITE R Radial; SO2 96 % (95-99); Total Carbon Dioxide 31 mmol/L; pCO2 48.4 mmHg (35-45); pH 7.39 (7.35-7.45)
[2022-02-21 15:42] LABS: Magnesium 2.3 mg/dL (1.6-2.6)
[2022-02-21] MEDS: Aspirin E.C. 81 MG Tablet PO (15:46)
[2022-02-21] MEDS: Enoxaparin 40 MG/0.4 ML Syringe SC (15:46)
[2022-02-21] MEDS: Azithromycin 250 MG Tablet 500 MG PO (16:23)
[2022-02-21] MEDS: Atorvastatin Calcium 80 MG Tablet PO (22:17)
[2022-02-21] MEDS: guaiFENesin 1,200 MG Tablet 1200 MG PO (22:17)
[2022-02-21] MEDS: Carvedilol 6.25 MG Tablet PO (22:18)
[2022-02-21] MEDS: 0.9% Saline Lock 10 ML Syringe IV (22:18)
[2022-02-22] VITALS (19 sets, daily range): BP systolic 113–142; BP diastolic 84–98; PULSE 71–106; RESP 12–21; TEMP 36.3–36.7; O2SAT 90–98
[2022-02-22] MEDS: Ipratropium/Albuterol Sulfate 3 ML AMPUL.NEB INHALATION ×6 (00:14→22:59)
[2022-02-22] MEDS: 0.9% Saline Lock 10 ML Syringe IV ×4 (05:16→21:04)
--- NOTE | 2022-02-22 05:55 | ECHOCS_ITS ---
Reason For Study: Acute resp failure, CAD Procedure This was a 2D Doppler, Color Flow transthoracic echocardiogram. The study was technically difficult. Exam performed portable in patient room. Left Ventricle Normal LV size. Sigmoid septum. Left ventricular systolic function is lower limits of normal. The estimated ejection fraction is 53 %. Stage 1 diastolic dysfunction. No regional wall motion abnormalities noted. Right Ventricle Normal RV size. Normal systolic function. Atria Normal left atrium. Normal right atrium. Mitral Valve Normal mitral valve. Tricuspid Valve Normal tricuspid valve. Aortic Valve Trisinus/trileaflet aortic valve. Great Vessels Normal aortic root. The pulmonary artery is normal size. Normal inferior vena cava. Pericardium/Pleural No pericardial effusion. Medication Diluted definity 2ml given slow IV push to enhance endocardial definition. MMode/2D Measurements & Calculations LVIDd: 4.3 cm IVSd: 1.5 cm Ao root diam: 3.2 cm LVIDs: 3.1 cm LVPWd: 0.82 cm RVDd: 3.6 cm FS: 26.2 % LAV(MOD-bp): 45.0 ml LVAd ap4: 40.0 cm2 LVAd ap2: 34.8 cm2 LAV(MOD-bp) Indexed: 20.8 ml/m2 LVLd ap4: 8.6 cm LVLd ap2: 9.0 cm LAV(MOD-sp2): 50.9 ml EDV(MOD-sp4): 151.6 ml EDV(MOD-sp2): 112.3 ml LAV(MOD-sp4): 39.5 ml EDV(sp4-el): 157.2 ml EDV(sp2-el): 114.8 ml LVAs ap4: 26.5 cm2 LVAs ap2: 21.4 cm2 LVLs ap4: 7.4 cm LVLs ap2: 7.5 cm ESV(MOD-sp4): 78.5 ml ESV(MOD-sp2): 50.9 ml ESV(sp4-el): 81.1 ml ESV(sp2-el): 52.4 ml EF(MOD-sp4): 48.2 % EF(MOD-sp2): 54.7 % EF(sp4-el): 48.4 % SV(MOD-sp4): 73.1 ml SV(MOD-sp2): 61.4 ml SV(sp4-el): 76.0 ml LA dimension(2D): 4.2 cm LA A4 area: 15.9 cm2 RA A4 area: 15.1 cm2 Doppler Measurements & Calculations MV E max jerzy: 68.8 cm/sec Lat Peak E' Jerzy: 9.7 cm/sec Med Peak E' Jerzy: 7.3 cm/sec MV A max jerzy: 72.9 cm/sec E/E' lat: 7.1 E/E' med: 9.4 MV E/A: 0.94 Ao V2 max: 112.5 cm/sec LV V1 max: 101.5 cm/sec PA V2 max: 135.6 cm/sec Ao max P.1 mmHg LV V1 max P.1 mmHg ECHO/Echo Complete W/ Contrast Interpretation Summary Normal LV size. Left ventricular systolic function is lower limits of normal. The estimated ejection fraction is 53 %. Stage 1 diastolic dysfunction. Contrast injection was performed. The study was technically difficult. Ordering Physician: Gianfranco Fernandez Referring Physician: Rio Boyce Performed By: Sury Dunn RDCS
[2022-02-22 06:56] LABS: Absolute Neutrophil Count 15.1 X10^3/uL (2.0-7.7); Basophil# 0.03 X10^3/uL; Basophil% 0.2 % (0-1); Eosinophil# 0.02 X10^3/uL; Eosinophils% 0.1 % (0-5); Hematocrit 48.5 % (40-54); Lymphocyte % 7.2 % (19-41); Mean Corpuscular Hgb 31.1 pg (27.0-32.0); Mean Corpuscular Volume 94.4 fL (80-94); Mean Platelet Vol. 10.7 fl (6.2-12.0); Monocyte# 0.19 X10^3/uL; Monocyte% 1.1 % (0-10); NRBC Flagged by Analyzer 0 % (0-5); Neutrophil # 15.07 X10^3/uL (2.7-7.7); Neutrophil % 90.6 % (47-70); Platelet Count 224 K/mm3 (150-450); RBC Distribution Width CV 11.8 % (11.6-14.6); RBC Distribution Width SD 40.9 fl (35.1-43.9); Red Blood Count 5.14 M/mm3 (4.6-6.2); White Blood Count 16.6 K/mm3 (4.4-11.0)
[2022-02-22 07:28] LABS: Anion Gap 6 (5-15); BUN 19 mg/dL (7-18); Calcium,Total 9.4 mg/dL (8.5-10.1); Chloride 98 mmol/L (98-107); Cholesterol 111 mg/dL (200); EST Glomerular Filtration Rate 94 mL/min (>60); Est Glom Filt Rate - Afr Amer 114 mL/min (>60); Estimated Creatinine Clearance 88.61 ml/min; Glucose 200 mg/dL (74-106); High Density Lipoprotein 48 mg/dL; Potassium 5.1 mmol/L (3.5-5.1); Sodium Level 133 mmol/L (136-145); Triglycerides 100 mg/dL; Very Low Density Lipoprotein 20 mg/dL (5-40)
[2022-02-22] MEDS: guaiFENesin 1,200 MG Tablet 1200 MG PO ×2 (09:22→21:01)
[2022-02-22] MEDS: Aspirin E.C. 81 MG Tablet PO (09:22)
[2022-02-22] MEDS: Azithromycin 250 MG Tablet 500 MG PO (09:22)
[2022-02-22] MEDS: Carvedilol 6.25 MG Tablet PO ×2 (09:23→21:01)
[2022-02-22] MEDS: Lisinopril 20 MG Tablet PO (09:23)
[2022-02-22] MEDS: Clopidogrel Bisulfate 75 MG Tablet PO (09:23)
[2022-02-22] MEDS: hydroCHLOROthiazide 25 MG Tablet PO (09:23)
[2022-02-22] MEDS: Enoxaparin 40 MG/0.4 ML Syringe SC (09:23)
[2022-02-22 10:10] LABS: Hemoglobin A1c 6.6 % (3.8-5.6)
--- NOTE | 2022-02-22 11:50 | CASEMGMT ---
NEAL STARK SUBSTITUTE TEACHER CM to room to meet with patient for initial transition planning/care coordination assessment. NEAL STARK introduced self and role at [facility]. Pt voices understanding and consents to assessment at this time. Pt resting in bed in no distress at this time. Pt is A/O at this time and answers all questions appropriately. Care providers, pharmacy, and demographics verified/updated at this time. PCP: Dr Boyce Specialists: Cariologist @ [facility]-pt and do not remember his name. Dr Ovalle-surgeon Preferred Pharmacy: [facility] Retail Insurance:[place] [facility] Prescription Benefit: Yes Living Will/HPOA: States does not have LW or HCPOA . Interested in more information and would like to talk w/SW to complete. LUZ Rodriguez, made aware. LNOK: , Ora Living Arrangements: Lives w/ and 2 children in one-story home w/no steps to enter. Independent. Transportation: Pt states drives self and states no transportation concerns at this time. also drives DME: Has a CPAP, but states, I have not used it for a long time since it broke. Pt states his current insurance will not cover for a new one and cost is approx $900. Pt does not have Home oxygen or pulse ox. NEAL STARK provided list of local DME companies if oxygen is needed @ d/c. 1st preference is [employer]. HHC/SNF: No hx of either. No needs identified. Pt wishes to return home and states has no concerns with going home at time of discharge. Pt states does not smoke. He does chew. When asked pt if he drinks he stated, not any longer. , who is sitting beside pt, shook her head. Upon further discussion, pt states he was drinking up until about a month ago, with an average daily ETOH consumption of 12-pack/day. NEAL STARK inquired when his last drink was and he stated a week ago Sat. Pt states he has never had issues w/withdrawal from ETOH when he stops drinking. states, He sure is a lot easier to live with when he is not drinking. Pt denies wanting any resources to help in sustaining from drinking. CM to follow for home oxygen needs and any further discharge planning/needs. Pt and voice no further concerns/needs at this time. Advised them to ask for CM if any further questions/concerns/needs arise. They voice understanding. PLAN: Home w/spousal support and discharge plans in place. CM to follow for possible Home O2. Anselmo DAVIDN RN CM
--- NOTE | 2022-02-22 13:53 | NURSING ---
Approached patient about [facility] Patient Link program. Patient agreeable to program at discharge, consent obtained.
--- NOTE | 2022-02-22 14:06 | PN.HOSP_ITS ---
Subjective Subjective Follow-up for shortness of breath and acute hypoxic respiratory failure. Objective Data Objective Data Vital Signs: Vital Signs Temp Pulse Resp BP Pulse Ox 98.0 F 94 18 134/86 H 90 02/22/22 09:22 02/22/22 11:04 02/22/22 11:04 02/22/22 09:22 02/22/22 09:38 Oxygen Flow Rate (L/min) 2 Oxygen Delivery Method Nasal Cannula Weight: 241 lb 13.553 oz Body Mass Index (BMI) 38.7 Intake & Output: Intake and Output for Last 24 Hours 02/20/22 02/21/22 02/22/22 23:59 23:59 23:59 Intake Total 600 / 600 680 / 680 Balance 600 / 600 680 / 680 Lab / Micro Data Result Diagrams: 02/22/22 05:15 02/22/22 05:15 Labs: Laboratory Results - last 24 hr 02/21/22 09:55: Magnesium 2.3 02/21/22 14:45: COVID-19 (AFTIMAH) Not Detected 02/22/22 05:15: WBC 16.6 H, RBC 5.14, Hgb 16.0, Hct 48.5, MCV 94.4 H, MCH 31.1, MCHC 33.0, RDW Std Deviation 40.9, RDW Coeff of Marta 11.8, Plt Count 224, MPV 10.7, Immature Gran % (Auto) 0.800, Neut % (Auto) 90.6 H, Lymph % (Auto) 7.2 L, [place] % (Auto) 1.1, Eos % (Auto) 0.1, Baso % (Auto) 0.2, Absolute Neuts (auto) 15.1 H, Absolute Lymphs (auto) 1.20, Nucleated RBC % 0 02/22/22 05:15: Sodium 133 L, Potassium 5.1, Chloride 98, Carbon Dioxide 29.0, Anion Gap 6, BUN 19 H, Creatinine 0.90, Estim Creat Clear Calc 88.61, Est GFR (MDRD) Af Amer 114, Est GFR (MDRD) Non-Af 94, BUN/Creatinine Ratio 21.0 H, Glucose 200 H, Calcium 9.4, Triglycerides 100, Cholesterol 111, LDL Cholesterol 43, VLDL Cholesterol 20, HDL Cholesterol 48, TSH 0.40 02/22/22 05:15: Hemoglobin A1c 6.6 H Micro: Microbiology 02/21/22 17:36 Mucosa - Nose Respiratory Panel (PCR) - Final 02/21/22 10:08 Nasal Secretion SARS-CoV-2 & FLU Antigen (Rapid) - Final ABG Data ABG results: ABG 02/21/22 15:31 Specimen Type ART Sample Site R Radial pH 7.39 Bicarbonate Actual 29.0 H Total CO2 31 Base Excess 4 H O2 Saturation 96 ABG pCO2 48.4 H ABG pO2 85 Melo Test Positive O2 Delivery Device Cannula Liter Flow 3.0 Radiography Diagnostic Testing: Radiology Impression Echocardiogram 02/22/22 05:55 Interpretation Summary Normal LV size. Left ventricular systolic function is lower limits of normal. The estimated ejection fraction is 53 %. Stage 1 diastolic dysfunction. Contrast injection was performed. The study was technically difficult. Physical Exam Narrative General: Alert, Oriented x3, Cooperative, morbid obesity BMI 38.8 kg/m? HEENT: No palpable cervical or submandibular lymphadenopathy atraumatic, PERRLA, EOMI, Normocephalic Oral: Deep oropharyngeal, base of tongue not visualized. No Gingival or Mucosal Lesions/ Ulcerations Neck: Supple, No JVD, Negative Carotid Bruits Lungs: Air entry diminished in bilateral lung bases. Mild bilateral wheezing and rhonchi. No tachypnea. On 2 L of oxygen Cardiovascular: Regular rate, Regular Rhythm, Normal S1, Normal S2, No murmurs Abdomen: Bowel Sounds Present, Soft, Non Tender, Non-Distended : No renal angle tenderness. No suprapubic tenderness. Extremities: No edema, Capillary Refill Less than 3 Seconds Skin: No rashes, No breakdown Musculoskeletal: No Tenderness to Palpation of Joints or Extremities Neurological: Cranial nerves II-XII grossly intact, DTR 2+/4 and Symmetrical, Neuro grossly intact Psych/Mental Status: Normal Affect, Appropriate. Assessment & Plan Assessment/Plan (1) Acute respiratory failure with hypoxia: PLAN: 1. Acute hypoxic respiratory failure due to atypical asthma, exacerbated by acute bronchitis: Patient is being admitted in PCU. Continue BiPAP for rescue and at night. ABG ordered. Bronchodilator DuoNeb every 4 hourly, IV Solu-Medrol, incentive spirometry, Pep and Zithromax ordered. If that negative will order respiratory panel. Sputum culture and blood cultures x2 ordered. Patient has leukocytosis but does not have focus of infection or other features of sepsis. Chest x-ray and CT individually reviewed does not show acute abnormality. 02/22: 2D echo shows EF 53% lower limit of normal, stage I diastolic function. Lasix 20 mg IV 1 dose given to improve lung ventilation and decrease hypoxia. Discussed with Dr. Seo regarding exposure to mold but he thinks is not significant as it was not persistent, prolonged or direct contact. Follow-up in pulmonary clinic in 2 to 3 weeks after discharge. Continue bronchodilator, incentive spirometry and Pep. COVID-19 PCR and rapid flu and respiratory panel negative. Rapid strep ordered. Sputum culture ordered patient did not have any sputum production. 2. Coronary artery disease status post stent in 2015. Patient has atherosclerotic coronary artery disease status post PCI in 2014. Patient not showing any features of heart failure including leg swelling, pulmonary or elevated JVD. Last exercise stress echo in March 2015 reported EF 68% with mild segmental hypokinesis. It was negative for ischemia as per EKG and echo criteria. Last cardiac cath in March 2015 reported EF 55% with triple-vessel coronary artery disease without angiographic evidence of disease progression or restenosis of posterior circulation. Continue baby aspirin, Plavix, carvedilol 3. Obstructive sleep apnea on CPAP: Last pulmonary visit in [address] Seo. Patient had diagnostic polysomnogram. He chews tobacco. 4. Hypertension and dyslipidemia: Patient on rosuvastatin continued. On HCTZ and lisinopril. 5. Hyperglycemia: Glucose is 165 mg/dL on BMP. A1c tomorrow a.m. VT prophylaxis: Lovenox 40 MG subcu daily. Discontinue if platelet count drops less than 50,000 or hemoglobin less than 8 g% Living will/advanced directive/end of life care: Patient does not have living will or advanced directive. His next to kin. After discussion of benefits/risks procedures involved with full code, DNR CC arrest and DNR CC, the patient opted for full code. Patient does want artificial life support including intubation, tube feed, ventilator and/chest compression, central venous catheter, vasopressor and DC shock if needed Total time spent in [id number] encounter in discussion of advanced directive 16 minutes. Charges/Coding Visit Charges Inpatient E&M: 88702 Subs Hosp L2
[2022-02-22] MEDS: Furosemide 20 MG/2 ML VIAL IV (15:03)
--- NOTE | 2022-02-22 15:18 | CASEMGMT ---
SW met with patient as he informed RN CM he would like to complete advance directives. SW introduced self and role at [facility]. SW completed documents with patient. Copies were made and given to patient along with originals. A copy of each was also placed in patient's chart. Jennifer MAXWELL
[2022-02-22] MEDS: Atorvastatin Calcium 80 MG Tablet PO (21:01)
[2022-02-23] VITALS (10 sets, daily range): BP systolic 128–164; BP diastolic 91–108; PULSE 62–93; RESP 12–20; TEMP 36.4–36.8; O2SAT 90–96
[2022-02-23] MEDS: Ipratropium/Albuterol Sulfate 3 ML AMPUL.NEB INHALATION ×3 (03:14→10:51)
[2022-02-23 04:13] LABS: Anion Gap 7 (5-15); BUN 22 mg/dL (7-18); BUN/Creat Ratio 24.2 RATIO (10-20); Calcium,Total 9.1 mg/dL (8.5-10.1); Chloride 97 mmol/L (98-107); Creatinine, Serum 0.91 mg/dL (0.70-1.30); EST Glomerular Filtration Rate 94 mL/min (>60); Est Glom Filt Rate - Afr Amer 113 mL/min (>60); Estimated Creatinine Clearance 87.64 ml/min; Glucose 227 mg/dL (74-106); Potassium 4.7 mmol/L (3.5-5.1); Sodium Level 132 mmol/L (136-145)
[2022-02-23] MEDS: 0.9% Saline Lock 10 ML Syringe IV (05:23)
--- NOTE | 2022-02-23 07:34 | PCM.DC ---
Discharge Instructions Diet Discharge Diet: Low fat / Low cholesterol and 2000 mg Sodium Diet Activity Discharge Activity: Return to Normal Activity Dressing / Incision Call your doctor if you observe: Fever of 101 or Higher, Coldness, Increased Pain, Numbness or Tingling, Change in Color, Inability to urinate, Inability to have a bowel movement, Shortness of breath, Dizziness, Fainting spells, Swelling in the ankles, Chest pain, Prolonged hiccupping, Increased palpitations (irregular heartbeat) and Calf discomfort Follow Up Care Test Results: Test results from this visit will be discussed in further detail at your follow-up appointment, if applicable. Discharge Plan Admission Admit Date/Time: 02/21/22 14:17 Primary Reason for Your Visit: Acute hypoxic respiratory failure, possible atpical asthma Exacerbation Attending Provider: Gianfranco Fernandez Primary Care Provider: Rio Boyce Discharge Orders/Prescriptions Prescriptions: New Mucus Relief ER 1,200 mg Tablet Extended Release 12hr 1,200 mg PO BID Qty: 14 RF: 0 prednisone 10 mg tablet See Taper mg PO DAILY Qty: 30 RF: 0 Continued rosuvastatin [Crestor] 40 mg tablet 40 mg PO DAILY RF: 0 Repatha Pushtronex 420 mg/3.5 mL wearable injector 420 mg subcut QMONTH RF: 0 hydrochlorothiazide 25 mg tablet 25 mg PO DAILY RF: 0 metoprolol succinate [Toprol XL] 50 mg tablet extended release 24 hr 100 mg PO DAILY RF: 0 lisinopril [Zestril] 20 mg tablet 20 mg PO DAILY RF: 0 aspirin 325 mg Tablet 325 mg PO DAILY RF: 0 carvedilol 6.25 mg tablet 6.25 mg PO BID RF: 0 Nexlizet 180-10 mg tablet 1 tab PO DAILY RF: 0 Xarelto 2.5 mg tablet 2.5 mg PO BID RF: 0 albuterol sulfate 90 mcg/actuation HFA aerosol inhaler 2 puff INHALATION Q4H PRN PRN (Reason: Shortness Of Breath) Qty: 1 RF: 0 Referrals / Follow Up: Zhen Seo DO [STAFF PHYSICIAN] - Within 1 Week (Patient has appointment on March [address] Seo.) Rio Boyce MD [Primary Care Provider] - Disposition Disposition (needs filled in before D/C Order can be placed): Home, Self Care
[2022-02-23] MEDS: Aspirin E.C. 81 MG Tablet PO (08:32)
[2022-02-23] MEDS: Carvedilol 6.25 MG Tablet PO (08:32)
[2022-02-23] MEDS: Azithromycin 250 MG Tablet 500 MG PO (08:32)
[2022-02-23] MEDS: Lisinopril 20 MG Tablet PO (08:32)
[2022-02-23] MEDS: guaiFENesin 1,200 MG Tablet 1200 MG PO (08:32)
[2022-02-23] MEDS: hydroCHLOROthiazide 25 MG Tablet PO (08:32)
[2022-02-23] MEDS: Clopidogrel Bisulfate 75 MG Tablet PO (08:32)
--- NOTE | 2022-02-23 11:36 | PCM.DC.SUM ---
Providers Date of Admission: 02/21/22 Primary Care Physician: Dr. Rio Boyce MD Reason For Visit: ACUTE BRONCITIS Diagnosis Discharge Diagnosis (1) Acute respiratory failure with hypoxia: Status: Acute Code(s): J96.01 - Acute respiratory failure with hypoxia Medications at Discharge Home Medications rosuvastatin 40 mg tablet 40 mg PO DAILY 03/18/19 evolocumab 420 mg/3.5 mL subcutaneous wearable injector 420 mg SUBCUT QMONTH 10/09/21 hydrochlorothiazide 25 mg tablet 25 mg PO DAILY 10/09/21 lisinopril [Zestril] 20 mg PO DAILY 10/19/21 metoprolol succinate [Toprol XL] 100 mg PO DAILY 10/19/21 aspirin 325 mg PO DAILY 01/26/22 Nexlizet 1 tab PO DAILY 02/21/22 Xarelto 2.5 mg PO BID 02/21/22 carvedilol 6.25 mg PO BID 02/21/22 albuterol sulfate 2 puff INHALATION Q4H PRN PRN #1 g 02/23/22 guaifenesin [Mucus Relief ER] 1,200 mg PO BID #14 tab 02/23/22 metformin 500 mg PO BID #60 tab 02/23/22 prednisone See Taper PO DAILY #30 tab 02/23/22 Hospital Course Summary of Care Provided Hospital Course: The patient is a pleasant 51-year-old gentleman with history of coronary artery disease status post stent 2014, ELDA on CPAP admitted with shortness of breath, productive cough, dyspnea on exertion progressively worsening for 4 days. Patient was found hypoxic 85% on 3 L nasal cannula and his blood pressure was 220/184 in ED. Please see H&P for detail. 1. Acute hypoxic respiratory failure, exact etiology unclear but possible asthma equivalent/atypical asthma, exacerbated by acute bronchitis: Patient is being admitted in PCU. Patient has hypersensitivity to pollens and allergy but never diagnosed asthma. ABG reviewed. 7.30 9/48/85/29 on 3 L of oxygen nasal cannula. Bicarb 29 on BMP, anion gap 7. ABG consistent with mild chronic compensated respiratory acidosis. Continue BiPAP during naps and night. Patient was managed with bronchodilator DuoNeb every 4 hourly, IV Solu-Medrol, incentive spirometry, Pep and Zithromax. COVID-19 PCR, rapid flu and respiratory panel negative. Patient had mild sore throat/discomfort and rapid strep negative. Gram stain of sputum culture and appears normal respiratory mireya. 2D echo shows EF 53% lower limit of normal, stage I diastolic function. Patient had 1 dose of Lasix 20 g IV and hypoxia has resolved. Discussed with Dr. Seo regarding exposure to mold but he thinks is not significant as it was not persistent, prolonged or direct contact. Follow-up in pulmonary clinic on March 30. Patient was given prescription of prednisone taper, albuterol inhaler and Mucinex. Need outpatient spirometry and sleep study. 2. Coronary artery disease status post stent in 2014. Patient has atherosclerotic coronary artery disease status post PCI in 2014. Patient not showing any features of heart failure including leg swelling, pulmonary or elevated JVD. Last exercise stress echo in March 2015 reported EF 68% with mild segmental hypokinesis. It was negative for ischemia as per EKG and echo criteria. Last cardiac cath in March 2015 reported EF 55% with triple-vessel coronary artery disease without angiographic evidence of disease progression or restenosis of posterior circulation. Continue baby aspirin, Plavix, carvedilol 3. Obstructive sleep apnea on CPAP: Last pulmonary visit in [address] Seo. Patient had diagnostic polysomnogram. He chews tobacco. 4. Hypertension and dyslipidemia: Patient blood pressure fluctuate during hospital course, low in 120s to high in 170. It was 220/184 in ED. After discussion with patient, he said his computational geneticist lowered her dose of lisinopril 20 twice daily to 20 mg once daily. Continue present dose of HCTZ lisinopril and rosuvastatin. Patient also on Xarelto 2.5 twice daily which is not recommended for any indication either DVT/PE or nonvalvular A. fib or prophylactic dose. Patient denies history of DVT/PE or A. fib. I advised the patient to follow-up with computational geneticist to make it clear the indication and dosages of Xarelto. 5. Diabetes mellitus type 2: Glucose is 165 mg/dL on BMP. A1c 6.6 therefore patient has diabetes mellitus type 2. Prescription of metformin given Living will/advanced directive/end of life care: Patient does not have living will or advanced directive. His next to kin. After discussion of benefits/risks procedures involved with full code, DNR CC arrest and DNR CC, the patient opted for full code. Patient does want artificial life support including intubation, tube feed, ventilator and/chest compression, central venous catheter, vasopressor and DC shock if needed Total time spent in [id number] encounter in discussion of advanced directive 16 minutes. Discharge medication reconciliation done. Discharge follow-up instructions completed. Discharge process discussed with the patient and all questions were answered to patient's satisfaction. Total time spent, exact 35 minutes on discharge meds reconciliation, examination, coordination of care with nurses and ancillary staff, review of imaging and blood test and discussion with the patient on follow-up instructions. Physical Exam Narrative Seen and examined. Shortness of breath is resolved. Patient wheezing is also much improved. Patient is states that he slept well on BiPAP and he would like one at home. Currently he is using CPAP at home without oxygen. General: Alert, Oriented x3, Cooperative, morbid obesity BMI 38.8 kg/m? HEENT: No palpable cervical or submandibular lymphadenopathy atraumatic, PERRLA, EOMI, Normocephalic Oral: Deep oropharyngeal, base of tongue not visualized. No Gingival or Mucosal Lesions/ Ulcerations Neck: Supple, No JVD, Negative Carotid Bruits Lungs: Air entry diminished in bilateral lung bases. Fine bilateral expiratory wheezing. No tachypnea. 93% on room air. Cardiovascular: Regular rate, Regular Rhythm, Normal S1, Normal S2, No murmurs Abdomen: Bowel Sounds Present, Soft, Non Tender, Non-Distended : No renal angle tenderness. No suprapubic tenderness. Extremities: No edema, Capillary Refill Less than 3 Seconds Skin: No rashes, No breakdown Musculoskeletal: No Tenderness to Palpation of Joints or Extremities Neurological: Cranial nerves II-XII grossly intact, DTR 2+/4 and Symmetrical, Neuro grossly intact Psych/Mental Status: Normal Affect, Appropriate. Weight / BMI Weight Weight: 238 lb 12.17 oz Body Mass Index (BMI) 38.7 ABG / Lab / Microbiology Data Result Diagrams: 02/22/22 05:15 02/23/22 03:12 Laboratory: Laboratory Results - last 24 hr 02/23/22 03:12: Sodium 132 L, Potassium 4.7, Chloride 97 L, Carbon Dioxide 28.0, Anion Gap 7, BUN 22 H, Creatinine 0.91, Estim Creat Clear Calc 87.64, Est GFR (MDRD) Af Amer 113, Est GFR (MDRD) Non-Af 94, BUN/Creatinine Ratio 24.2 H, Glucose 227 H, Calcium 9.1 Microbiology: Microbiology 02/22/22 21:20 Sputum, Expectorated/Coughed Gram Stain - Final 02/22/22 21:20 Sputum, Expectorated/Coughed Respiratory Culture - Preliminary Appears to be normal respiratory mireya. Further studies to follow. 02/22/22 15:05 Mucosa - Throat Group A Streptococcus Rapid Screen - Preliminary 02/21/22 17:36 Mucosa - Nose Respiratory Panel (PCR) - Final 02/21/22 10:08 Nasal Secretion SARS-CoV-2 & FLU Antigen (Rapid) - Final D/C Instructions Discharge Diet: Low fat / Low cholesterol and 2000 mg Sodium Diet Call your doctor if you observe: Fever of 101 or Higher, Coldness, Increased Pain, Numbness or Tingling, Change in Color, Inability to urinate, Inability to have a bowel movement, Shortness of breath, Dizziness, Fainting spells, Swelling in the ankles, Chest pain, Prolonged hiccupping, Increased palpitations (irregular heartbeat) and Calf discomfort Meaningful Use Info Meaningful Use Diagnoses (Choose all that apply): None applicable Discharge Plan Admission Admit Date/Time: 02/21/22 14:17 Primary Reason for Your Visit: Acute hypoxic respiratory failure, possible atpical asthma Exacerbation Attending Provider: Gianfranco Fernandez Primary Care Provider: Rio Boyce Discharge Orders/Prescriptions Prescriptions: New Mucus Relief ER 1,200 mg Tablet Extended Release 12hr 1,200 mg PO BID Qty: 14 RF: 0 prednisone 10 mg tablet See Taper mg PO DAILY Qty: 30 RF: 0 metformin 500 mg tablet 500 mg PO BID Qty: 60 RF: 0 Continued rosuvastatin [Crestor] 40 mg tablet 40 mg PO DAILY RF: 0 Repatha Pushtronex 420 mg/3.5 mL wearable injector 420 mg subcut QMONTH RF: 0 hydrochlorothiazide 25 mg tablet 25 mg PO DAILY RF: 0 metoprolol succinate [Toprol XL] 50 mg tablet extended release 24 hr 100 mg PO DAILY RF: 0 lisinopril [Zestril] 20 mg tablet 20 mg PO DAILY RF: 0 aspirin 325 mg Tablet 325 mg PO DAILY RF: 0 carvedilol 6.25 mg tablet 6.25 mg PO BID RF: 0 Nexlizet 180-10 mg tablet 1 tab PO DAILY RF: 0 Xarelto 2.5 mg tablet 2.5 mg PO BID RF: 0 albuterol sulfate 90 mcg/actuation HFA aerosol inhaler 2 puff INHALATION Q4H PRN PRN (Reason: Shortness Of Breath) Qty: 1 RF: 0 Referrals / Follow Up: Zhen Seo DO [STAFF PHYSICIAN] - Within 1 Week (Patient has appointment on March [address] Seo.) Rio Boyce MD [Primary Care Provider] - Disposition Disposition (needs filled in before D/C Order can be placed): Home, Self Care Charges/Coding Visit Charges Inpatient E&M: 02089 Disch Hosp
--- NOTE | 2022-02-23 11:45 | CASEMGMT ---
NEAL CM NOTE: Home Oxygen testing has been completed. Pt does not qualify for Home O2. Anselmo SYED RN CM
== END 2022-02-23 13:02 | disposition home or self-care (01) | DRG 189 ==
LOC: ED 13:06 → PCU 14:32
PROVIDERS: Admitting Provider Internal Medicine; Emergency Provider Emergency Medicine; PCP Family Medicine; Visit Provider Internal Medicine
DX: J96.01 Acute respiratory failure with hypoxia (principal); E87.2 Acidosis; J45.901 Unspecified asthma with (acute) exacerbation; E11.65 Type 2 diabetes mellitus with hyperglycemia; E66.01 Morbid (severe) obesity due to excess calories; J20.9 Acute bronchitis, unspecified; F17.220 Nicotine dependence, chewing tobacco, uncomplicated; G47.33 Obstructive sleep apnea (adult) (pediatric); E78.5 Hyperlipidemia, unspecified; I25.10 Atherosclerotic heart disease of native coronary artery without angina pectoris; I10 Essential (primary) hypertension; I25.2 Old myocardial infarction; Z68.38 Body mass index [BMI] 38.0-38.9, adult; Z20.822 Contact with and (suspected) exposure to COVID-19; Z79.82 Long term (current) use of aspirin; Z79.02 Long term (current) use of antithrombotics/antiplatelets; Z79.899 Other long term (current) drug therapy; Z95.5 Presence of coronary angioplasty implant and graft
CPT/HCPCS: 36415; 36600; 71045; 71275; 80048; 80061; 82803; 83036; 83735; 84443; 84484; 85025; 87070; 87077; 87101; 87205; 87428; 87633; 87635; 87880; 93005; 93306; 94002; 94003; 94640; 94667; 94668; 94762; 99251; 99285; Q9957; Q9967; A4216; C8929; G0463; J1940; U0003; U0005

== ENCOUNTER → 2022-03-22 | Outpatient (CLI) | payer OTHER, SELFPAY | END | disposition home or self-care (01) | LOC: SL 20:03 | PROVIDERS: PCP Family Medicine; Referring Provider Nurse Practitioner Acute Care; Visit Provider Nurse Practitioner Acute Care | DX: G47.33 Obstructive sleep apnea (adult) (pediatric) (principal) | CPT/HCPCS: 95811 ==

== ENCOUNTER → 2022-05-17 | Outpatient (CLI) | payer OTHER, SELFPAY ==
[2022-05-17 17:46] LABS: Absolute Lymphocyte Count 2.36 X10^3/uL (0.83-4.51); Absolute Neutrophil Count 4.3 X10^3/uL (2.0-7.7); Basophil# 0.05 X10^3/uL; Basophil% 0.6 % (0-1); Eosinophil# 0.58 X10^3/uL; Eosinophils% 7.4 % (0-5); Hematocrit 43.6 % (40-54); Hemoglobin 14.5 g/dL (13.0-16.5); Lymphocyte # 2.36 X10^3/ul (0.83-4.51); Lymphocyte % 30.2 % (19-41); Mean Corp Hgb Conc 33.3 g/dL (32-36); Mean Corpuscular Hgb 31.3 pg (27.0-32.0); Mean Corpuscular Volume 94.2 fL (80-94); Mean Platelet Vol. 10.7 fl (6.2-12.0); Monocyte# 0.55 X10^3/uL; NRBC Flagged by Analyzer 0 % (0-5); Neutrophil # 4.25 X10^3/uL (2.7-7.7); Neutrophil % 54.4 % (47-70); Platelet Count 227 K/mm3 (150-450); RBC Distribution Width CV 11.7 % (11.6-14.6); RBC Distribution Width SD 40.1 fl (35.1-43.9); Red Blood Count 4.63 M/mm3 (4.6-6.2); White Blood Count 7.8 K/mm3 (4.4-11.0)
[2022-05-17 18:35] LABS: Vitamin D,25 Hydroxy 39.9 ng/mL
[2022-05-17 18:39] LABS: ALB/GLOB Ratio 1.1 RATIO (0.9-2.4); AST(SGOT) 23 U/L (15-37); Alanine Aminotransfer ALT/SGPT 36 U/L (16-61); Albumin, Serum 4.1 g/dL (3.2-5.0); Alkaline Phosphatase 40 U/L (45-117); Anion Gap 9 (5-15); BUN 19 mg/dL (7-18); BUN/Creat Ratio 19.6 RATIO (10-20); Calcium,Total 9.2 mg/dL (8.5-10.1); Chloride 100 mmol/L (98-107); Cholesterol 72 mg/dL (200); Creatinine, Serum 0.97 mg/dL (0.70-1.30); EST Glomerular Filtration Rate 87 mL/min (>60); Est Glom Filt Rate - Afr Amer 105 mL/min (>60); Globulin 3.7 g/dL (2.2-4.2); Glucose 170 mg/dL (74-106); High Density Lipoprotein 35 mg/dL; Potassium 3.9 mmol/L (3.5-5.1); Protein, Total 7.8 g/dL (6.4-8.2); Sodium Level 136 mmol/L (136-145); Thyroid Stim Hormone (TSH) 1.83 uIU/mL (0.358-3.74); Triglycerides 125 mg/dL; Very Low Density Lipoprotein 25 mg/dL (5-40)
[2022-05-17 18:51] LABS: Microalbumin,Random Urine 8.3 mg/L (NO RANGE EST.); Microalbumin:Creatinine Ratio 10.6 mg/g CRE (<30 mg/g CRE)
[2022-05-17 20:12] LABS: Hemoglobin A1c 5.9 % (3.8-5.6)
== END | disposition home or self-care (01) ==
LOC: MFPLAB 16:14
PROVIDERS: PCP Family Medicine; Referring Provider Family Medicine; Visit Provider Family Medicine
DX: I25.10 Atherosclerotic heart disease of native coronary artery without angina pectoris (principal); E11.59 Type 2 diabetes mellitus with other circulatory complications; E55.9 Vitamin D deficiency, unspecified
CPT/HCPCS: 36415; 80053; 80061; 82043; 82306; 82570; 83036; 84443; 85025

== ENCOUNTER → 2023-02-01 | Outpatient (CLI) | payer OTHER, SELFPAY ==
[2023-02-01 17:48] LABS: Absolute Lymphocyte Count 2.05 X10^3/uL (0.83-4.51); Absolute Neutrophil Count 4.9 X10^3/uL (2.0-7.7); Basophil# 0.06 X10^3/uL; Basophil% 0.7 % (0-1); Eosinophil# 0.45 X10^3/uL; Eosinophils% 5.5 % (0-5); Hematocrit 49.1 % (40-54); Hemoglobin 16.2 g/dL (13.0-16.5); Lymphocyte # 2.05 X10^3/ul (0.83-4.51); Lymphocyte % 24.9 % (19-41); Mean Corpuscular Hgb 31.7 pg (27.0-32.0); Mean Corpuscular Volume 96.1 fL (80-94); Mean Platelet Vol. 11.2 fl (6.2-12.0); Monocyte# 0.69 X10^3/uL; Monocyte% 8.4 % (0-10); NRBC Flagged by Analyzer 0 % (0-5); Neutrophil # 4.94 X10^3/uL (2.7-7.7); Neutrophil % 59.9 % (47-70); Platelet Count 179 K/mm3 (150-450); RBC Distribution Width CV 11.9 % (11.6-14.6); RBC Distribution Width SD 42.5 fl (35.1-43.9); Red Blood Count 5.11 M/mm3 (4.6-6.2); White Blood Count 8.2 K/mm3 (4.4-11.0)
[2023-02-01 18:14] LABS: Vitamin D,25 Hydroxy 30.7 ng/mL
[2023-02-01 18:16] LABS: AST(SGOT) 54 U/L (15-37); Alanine Aminotransfer ALT/SGPT 87 U/L (16-61); Albumin, Serum 3.8 g/dL (3.2-5.0); Alkaline Phosphatase 58 U/L (45-117); Anion Gap 7 (5-15); BUN 14 mg/dL (7-18); BUN/Creat Ratio 17.7 RATIO (10-20); Calcium,Total 9.2 mg/dL (8.5-10.1); Chloride 106 mmol/L (98-107); Cholesterol 249 mg/dL (200); Creatinine, Serum 0.79 mg/dL (0.70-1.30); EST Glomerular Filtration Rate 109 mL/min (>60); Est Glom Filt Rate - Afr Amer 132 mL/min (>60); Globulin 3.9 g/dL (2.2-4.2); Glucose 121 mg/dL (74-106); High Density Lipoprotein 44 mg/dL; Potassium 4.1 mmol/L (3.5-5.1); Protein, Total 7.7 g/dL (6.4-8.2); Sodium Level 136 mmol/L (136-145); Triglycerides 146 mg/dL; Very Low Density Lipoprotein 29 mg/dL (5-40)
[2023-02-01 18:21] LABS: Hemoglobin A1c 5.9 % (3.8-5.6)
[2023-02-04 16:39] LABS: Hepatitis B Surface Antibody Non-Reactive; Hepatitis B Surface Antigen Non-Reactive (Nonreactive); Hepatitis C Antibody Non-Reactive (Nonreactive)
== END | disposition home or self-care (01) ==
LOC: MFPLAB 16:16
PROVIDERS: PCP Family Medicine; Visit Provider Family Medicine
DX: R79.89 Other specified abnormal findings of blood chemistry (principal); E11.9 Type 2 diabetes mellitus without complications; I25.10 Atherosclerotic heart disease of native coronary artery without angina pectoris; E55.9 Vitamin D deficiency, unspecified
CPT/HCPCS: 36415; 80053; 80061; 82306; 83036; 85025; 86706; 86803; 87340

== ENCOUNTER → 2025-08-11 | Outpatient (CLI) | payer OTHER, SELFPAY ==
[2025-08-11 15:15] LABS: Hematocrit 44.1 % (40-54); Hemoglobin 15.3 g/dL (13.0-16.5); Immature Granulocytes Count 0.040 X10^3/uL (0.0-0.0); Mean Corp Hgb Conc 34.7 g/dL (32-36); Mean Corpuscular Volume 92.5 fL (80-94); Mean Platelet Vol. 11.2 fl (6.2-12.0); NRBC Flagged by Analyzer 0 % (0-5); Platelet Count 204 K/mm3 (150-450); RBC Distribution Width CV 11.5 % (11.6-14.6); RBC Distribution Width SD 38.9 fl (35.1-43.9); Red Blood Count 4.77 M/mm3 (4.6-6.2); White Blood Count 8.1 K/mm3 (4.4-11.0)
[2025-08-11 16:09] LABS: AST(SGOT) 28 U/L (<=37); Alanine Aminotransfer ALT/SGPT 34 U/L (<=46); Albumin, Serum 4.2 g/dL (3.5-5.0); Alkaline Phosphatase 63 U/L (40-129); Anion Gap 11 (5-15); BUN 10 mg/dL (4-19); BUN/Creat Ratio 12.9 RATIO (10-20); Calcium,Total 9.8 mg/dL (7.6-11.0); Carbon Dioxide 22.1 mmol/L (21.0-32.0); Chloride 99 mmol/L (98-108); Cholesterol 174 mg/dL (<=200); Globulin 3.3 g/dL (2.2-4.2); Glucose 337 mg/dL (70-99); Low Density Lipoprotein Calc. 115 mg/dL; Potassium 4.3 mmol/L (3.3-5.1); Triglycerides 115 mg/dL; Very Low Density Lipoprotein 23 mg/dL (5-40); Vitamin D,25 Hydroxy 13.3 ng/mL (30-100); cholesterol:hdl ratio screen 4.60
== END | disposition home or self-care (01) ==
LOC: MFPLAB 11:58
PROVIDERS: PCP Family Medicine; Visit Provider Family Medicine
DX: E11.8 Type 2 diabetes mellitus with unspecified complications (principal)
CPT/HCPCS: 36415; 80053; 80061; 82306; 83036; 85025